=== PATIENT | male | born 1935 | race Caucasian/White ===

== ENCOUNTER 2016-12-19 09:31 | Inpatient (IN) | payer MEDICARE, MEDICAID ==
[~2016-12-19] VITALS: Ht 172.7 cm; Wt 73.7 kg
[2016-12-19] VITALS (10 sets, daily range): BP systolic 132–181; BP diastolic 85–153; PULSE 79–135; RESP 15–33; O2SAT 95–99
--- NOTE | 2016-12-19 09:37 | ED.REPORT ---
HPI-Dyspnea / Wheezing Date of Service Dec 19, 2016 ED Provider: Shelton Ovalle MD Patient is an 81 year old male who presents to the ED via EMS due to shortness of breath. He denies chest pain or palpitations. The patient reports that he has been short of breath since 12/13/16. He went to earlier today where he was found to be in atrial fibrillation with RVR and hypertensive. Patient states that he is currently asymptomatic. He is not currently taking any anticoagulants. The patient recently traveled to [place]. Nursing Notes Stated Complaint: SHORTNESS OF BREATH Nursing Notes Reviewed: Yes Allergies: Coded Allergies: No Known Allergies (Unverified , 12/19/16) General Time Seen by MD: 09:36 Chief Complaint Shortness of breath Hx Obtained From: Patient Sudden in Onset?: No Onset Occurred: 1 week ago (2 weeks) Symptom Duration: Since onset Severity: Current: No pain currently Associated with: Denies: Chest pain Recent Healthcare: No recent hospitalization, Recent doctor visit Similar Sx Previous: Yes Past Medical History Past Medical History none reported Smoking History Never Smoker Social History Alcohol Use: Denies alcohol use Drug Use: Denies drug use Other Social History: Good social support Ambulatory Status Independent Review of Systems Constitutional: Denies: Chills Respiratory: Reports: Shortness of breath, Denies: Dyspnea on exertion, Non-productive cough Cardiovascular: Denies: Chest pain, Palpitations Complete sys rev & neg: except as marked. Physical Exam Initial Vital Signs Vital Signs (First) Date Time Temp Pulse Resp B/P Pulse Ox O2 Delivery O2 Flow Rate FiO2 12/19/16 09:38 35.9 135 24 181/153 98 Nasal Cannula 2 Initial VS: Reviewed General/Constitutional: Awake, Alert Appearance / Presentation: Positive: Frail Neck: Atraumatic, Supple, Full range of motion Respiratory / Chest: Atraumatic, Breath sounds NL, Breath sounds = bilat, No respiratory distress Cardiovascular: No murmurs Heart Rate / Rhythm: Positive: Irreg irregular rhythm, Tachycardia hypertensive Abdomen: Atraumatic, Soft, Non-tender Skin: Atraumatic, Color NL, No rash, Warm, Dry Neurologic: Oriented X3, Speech NL, No motor deficits, No sensory deficits Head / Eyes: Atraumatic, Normocephalic, PERRL, EOMI Psychiatric: Affect NL, Mood NL Interpretation & Diagnostics Lab Results Interpretation Result Diagram: 12/19/16 0940 12/19/16 0940 Test 12/19/16 09:40 White Blood Count 8.9th/mm3 (3.8-10.1) Red Blood Count 4.91mil/mm3 (4.40-5.80) Hemoglobin 14.5g/dL (13.8-17.2) Hematocrit 42.9% (41.0-50.0) Mean Corpuscular Volume 87.4fL (81-100) Mean Corpuscular Hemoglobin 29.5pg (27.0-35.0) Mean Corpuscular Hemoglobin Concent 33.8% (32.0-37.0) Red Cell Distribution Width 13.9% (12.3-15.4) Platelet Count 184bil/L (150-400) Neutrophils (%) (Auto) 86.6% (40-74) Lymphocytes (%) (Auto) 6.9% (14-46) Monocytes (%) (Auto) 6.1% (4-12) Eosinophils (%) (Auto) 0.1% (0-5) Basophils (%) (Auto) 0.1% (0-3) Activated Partial Thromboplast Time 32.0sec (22.8-33.0) D-Dimer 1.35mg/L FEU (<0.50) Sodium Level 143mEq/L (134-144) Potassium Level 4.1mEq/L (3.5-5.2) Chloride Level 103mEq/L (97-108) Carbon Dioxide Level 21mmol/L (18-29) Blood Urea Nitrogen 43mg/dL (8-27) Creatinine 1.48mg/dL (0.76-1.27) Estimat Glomerular Filtration Rate 48mL/min (>59) Glucose Level 129mg/dL (60-99) Calcium Level 9.7mg/dL (8.5-10.1) Magnesium Level 2.2mg/dL (1.6-2.6) Total Bilirubin 0.9mg/dL (0.0-1.2) Aspartate Amino Transf (AST/SGOT) 34U/L (0-50) Alanine Aminotransferase (ALT/SGPT) 29U/L (0-44) Alkaline Phosphatase 96U/L (25-160) Troponin T 0.078ug/L (0.0-0.011) Pro-B-Type Natriuretic Peptide 40532qz/mL (0-486) Total Protein 7.3g/dL (6.4-8.4) Albumin 3.8g/dL (3.4-5.0) ECG Interpretation ECG Interpretation: rate 139 atrial fibrillation with RVR non specific ST changes Time: 09:39 Interpreted by: ED physician ECG Interpretation: atrial fibrillation without ischemic changes rate 76 Time: 10:36 Interpreted by: ED physician X-Ray Chest Interpretation Chest Xray Interpretation: IMPRESSION: Mild cardiomegaly, without acute cardiopulmonary disease. Dictated by: Herb Carr M.D. on 12/19/2016 at 10:58 Approved by: Herb Carr M.D. on 12/19/2016 at 10:59 View: Portable, 1 view Interpretation / Wet Read by: Interpret - Radiologist CT Chest Interpretation IMPRESSION: 1. Multiple pulmonary emboli within subsegmental branches in the lower lobes. 2. Enlargement of the pulmonary arteries is present suggesting pulmonary arterial hypertension. No leftward deviation of the interventricular septum to definitely suggest right heart strain this time. Elevated right heart filling pressures are noted with reflux of contrast into the IVC and hepatic veins. 3. Bilateral pleural effusions, right greater than left, with associated compressive atelectasis. Pulmonary edema is also present as well as cardiomegaly. Constellation of findings are compatible with congestive heart failure. 4. Small to moderate sized pericardial effusion. 5. Bilateral perihilar bronchial wall thickening consistent with a nonspecific bronchiolitis with associated mild narrowing of the airways. Findings discussed with Dr. Mckeon on 12/19/16 at 11:55 AM. Dictated by: Pk Solomon M.D. on 12/19/2016 at 11:49 Approved by: Pk Solomon M.D. on 12/19/2016 at 12:02 Study type: CT pulm angiogram Interpretation / Wet Read by: Interpret - Radiologist Re-Eval/Medical Decision Med Decision/Clinical Course She arrives in moderate distress with recent shortness of breath in rapid atrial fibrillation. Recent long travel. He is treated with IV Cardizem as well as nitroglycerin paste. Troponin and proBNP are significantly elevated as well as d-dimer. He has a CT was positive for bilateral pulmonary emboli. Heparin bolus and drip were initiated in the ER as well as consult with cardiology for the possibility of a catheter guided tPA of the pulmonary arteries. Patient receives an echocardiogram in the ER, and is also not a good candidate for catheter guided tPA. [facility]. Re-Evaluation/Progress #1: Time of Eval: 11:05 Patient Status: Condition improved Re-Evaluation/Progress #2: Time of Eval: 12:01 Re-Evaluation/Progress Note: Discussed results and plan for admit. THe patient understands and agrees to the plan for admit. All questions were addressed. Consultation #1: Referral / Consult Name: Cheyenne Fletcher MD Consulted With: Cardiology Call Returned at: 12:09 Furnace Mason: Will see patient, Agrees with eval, Agrees with plan Consultation #2: Referral / Consult Name: Sanjiv Estrada DO Consulted With: Hospitalist Call Returned at: 12:45 Furnace Mason: Agrees with eval, Agrees with plan, Accepts admit Counseled Regarding: Diagnosis, Lab results, Need for admission Discharge & Departure Impression: Primary Impression: Pulmonary emboli Pulmonary embolism type: other Chronicity: unspecified Acute cor pulmonale presence: without acute cor pulmonale Qualified Code: I26.99 - Other pulmonary embolism without acute cor pulmonale Additional Impressions: Shortness of breath Atrial fibrillation with RVR Non-STEMI (non-ST elevated myocardial infarction) Disposition: ADMITTED TO HOSPITAL Discharge Condition All VS Reviewed: Yes Condition: Stable Crit Care Except Billable Proc Time Spent: 75-104 minutes Services Performed: Patient management by me, Time spent at bedside, Reviewing test results, Reviewing imaging, Discussing patient care, Documentation in record, Time with fam/surrogate Critical Care Notes: See MDM Scribe Attestation Portions of this note were transcribed by Mary Kate Orona. I, Dr. Emelyn Monique personally performed the history, physical exam and medical decision-making; I reviewed and confirmed the accuracy of the information in the transcribed note. Signed by: Tam Basilio, 12/19/16 and 124Shelton Hawkins DO Dec 19, 2016 09:36 Sylvie Orona Dec 19, 2016 09:49
[2016-12-19] MEDS ORDERED: Diltiazem 5 mg/mL 5 mL Inj IVPUSH ONE (09:45)
[2016-12-19] MEDS ORDERED: Nitroglycerin 2% 1 Gm Ointment TOPICAL SCH (09:45)
[2016-12-19 09:56] LABS: BASOPHILS % (AUTO) 0.1 % (0-3); EOSINOPHILS % (AUTO) 0.1 % (0-5); MONOCYTES % (AUTO) 6.1 % (4-12); Mean Corpuscular Hemoglobin 29.5 pg (27.0-35.0); Mean Corpuscular Volume 87.4 fL (81-100); NEUTROPHILS % (AUTO) 86.6 % (40-74); Platelet Count 184 bil/L (150-400)
[2016-12-19 10:33] LABS: Magnesium 2.2 mg/dL (1.6-2.6)
[2016-12-19 10:49] LABS: TROPONIN T 0.078 ug/L (0.0-0.011)
--- NOTE | 2016-12-19 11:00 | DRSVH ---
PROCEDURE: X-RAY CHEST ONE VIEW, PORTABLE ([id number]) INDICATIONS: 81 year-old male with chest pain and shortness of breath for 4 days. TECHNIQUE: One view of the chest was acquired. COMPARISON: None. FINDINGS: Surgical changes and devices: None. Lungs and pleura: No pleural effusions or pneumothorax. Lungs are clear. Lung volumes are decrease d. Mediastinum: Mediastinal contours appear normal. There is mild cardiomegaly. There is aortic athero sclerosis. Bones and chest wall: No suspicious bony lesions. Overlying soft tissues appear unremarkable. IMPRESSION: Mild cardiomegaly, without acute cardiopulmonary disease. Dictated by: Herb Carr M.D. on 12/19/2016 at 10:58 Approved by: Herb Carr M.D. on 12/19/2016 at 10:59
[2016-12-19] MEDS ORDERED: Heparin 5,000 Unit/mL Inj IVPUSH ONE (12:00)
[2016-12-19] MEDS ORDERED: Heparin 25K Unit/500mL 0.45 NS 25,000 UNIT in IV Premix 1 EACH IV ONE (12:00)
--- NOTE | 2016-12-19 12:04 | DRSVH ---
PROCEDURE: CT ANGIO CHEST PULMONARY EMBOLISM ([id number]) INDICATIONS: dyspnea, elevated ddimer TECHNIQUE: After the administration of intravenous contrast, 2 mm thick sections acquired from the pulmonary api juarez to the posterior costophrenic angles. 3-dimensional maximum intensity projection (MIP) coronal a nd sagittal reformats were then acquired through the thorax. For radiation dose reduction, the follo wing was used: automated exposure control, adjustment of mA and/or kV according to patient size. COMPARISON: None. FINDINGS: Image quality: There is mild motion artifact. Pulmonary arteries: Mild motion artifact is present slightly limiting evaluation. There are filling defects within multiple subsegmental branches within the right and left lower lobes consistent with p ulmonary embolism. The pulmonary arteries are enlarged suggesting pulmonary hypertension. No defini te leftward deviation of the interventricular septum. Lungs and pleura: There are bilateral pleural effusions, small to moderate in size on the right and s mall on the left, with associated compressive atelectasis. There is bilateral perihilar bronchial wa ll thickening. Interlobular septal thickening is demonstrated bilaterally with ground glass opacitie s consistent with pulmonary edema. The trachea and central airways are patent. There is mild narrow ing of the peripheral airways secondary to bronchial wall thickening. Mediastinum: Heart size is enlarged with a small to moderate-sized pericardial effusion. No mediast inal or hilar adenopathy by size criteria, with scattered subcentimeter mediastinal and hilar lymph n odes which are likely reactive. Thoracic aorta is normal in caliber and enhancement. Esophagus is n ormal in caliber, with a small hiatal hernia. Bones and chest wall: No suspicious bony lesions. Ribs and thoracic spine appear intact throughout. Thyroid gland demonstrates no discrete nodules. No axillary or supraclavicular adenopathy. Abdomen: Visualized upper abdomen demonstrates reflux of contrast into the hepatic veins and inferio r vena cava are patent with elevated right heart filling pressures. There are partially visualized v arices within the upper abdomen. IMPRESSION: 1. Multiple pulmonary emboli within subsegmental branches in the lower lobes. 2. Enlargement of the pulmonary arteries is present suggesting pulmonary arterial hypertension. No leftward deviation of the interventricular septum to definitely suggest right heart strain this time. Elevated right heart filling pressures are noted with reflux of contrast into the IVC and hepatic v eins. 3. Bilateral pleural effusions, right greater than left, with associated compressive atelectasis. P ulmonary edema is also present as well as cardiomegaly. Constellation of findings are compatible wit h congestive heart failure. 4. Small to moderate sized pericardial effusion. 5. Bilateral perihilar bronchial wall thickening consistent with a nonspecific bronchiolitis with as sociated mild narrowing of the airways. Findings discussed with Dr. Mckeon on 12/19/16 at 11:55 AM. Dictated by: Pk Solomon M.D. on 12/19/2016 at 11:49 Approved by: Pk Solomon M.D. on 12/19/2016 at 12:02
[2016-12-19] MEDS ORDERED: 0.9% Sodium Chloride 1,000 ML IV SCH ×2 (13:06→14:40)
[2016-12-19] MEDS ORDERED: Ondansetron 2 mg/mL 2 mL Inj IVPUSH PRN (13:10)
[2016-12-19] MEDS ORDERED: Heparin 1,000 Unit/mL 10 mL Inj ONE (13:10)
[2016-12-19] MEDS ORDERED: Atropine 1 mg/10 mL (Code) Syringe IVPUSH PRN (13:10)
[2016-12-19] MEDS ORDERED: Heparin 1,000 Units/500 mL NS Premix IV ONE (13:10)
[2016-12-19] MEDS ORDERED: Alum-Mag Hydrox-Simeth 30 mL Suspension PO PRN (13:10)
--- NOTE | 2016-12-19 13:20 | PCM.HPMED ---
Subjective Date of Service Dec 19, 2016 Primary Provider: Admitting Physician: Charlie Sales MD Primary Care Physician: Nopcp Attending Physician: Charlie Sales MD Chief Complaint: Shortness of breath History of Present Illness: 81-year-old male only reported history of hypertension treated with lisinopril who presented to the emergency department via ambulance from due to 4 days of painless shortness of breath on exertion. Patient states that over the last week he has been in [place] in 5 days ago he was in a plane traveling. Shortness of breath was noticed and the next day or 2 when he was operating his sailboat. Shortness of breath it has been limiting his insertion but at no time as he had any chest pain, diaphoresis, numbness or tingling in the left arm , nausea, vomiting, abdominal pain, diplopia, dizziness, or pleuritic pain. Patient denies pain on ambulation as well. He lives in [place] which is a [address] which he does on a regular basis. CT-A in the ED revealed multiple pulmonary emboli within the subsegmental branches of the lower lobes. There is also increased pulmonary artery pressure as well as increased right heart filling pressure. Echo was performed and Dr. Meeks reviewed the echo in the emergency department to assess the need for EKOS. After reviewed Dr. Meeks felt the patient did not meet criteria. Patient's lab work was mostly benign except for left shift with a normal white count. Patient did have a BNP of 12,677, listed in the setting of new acute kidney injury with creatinine of 1.48 (admittedly we do not know his baseline) and a small bump in his troponin of 0.078. Otherwise labs were benign. Review of Systems: Pertinent positives and negatives per history of present illness; all other systems reviewed and are negative. Allergies Coded Allergies: No Known Allergies (Unverified , 12/19/16) Home Medications Lisinopril 5 mg by mouth daily PMH Hypertension Surgical History None Family History Mother of unknown cancer in her mid-60s No family history of blood clots Social History Hx Alcohol Use: No Hx Substance Use: No Hx Tobacco Use: No Smoking Status: Never Smoker Living Arrangement: with Family Exam Vital Signs Vital Sign - Last Date Time Temp Pulse Resp B/P Pulse Ox O2 Delivery O2 Flow Rate FiO2 12/19/16 12:23 36.1 107 15 174/140 95 Nasal Cannula 2 Exam Gen.: Patient awake alert in no acute distress HEENT: PERRLA, membranes pink, EOMI, nares patent, no JVD, no carotid bruit Lymph: No lymphadenopathy Cardio: A. fib Respiratory: CTA bilaterally in the anterior and lateral montanez(performed during echo) Abdomen: Positive bowel sounds; nontender, nondistended, soft Extremities: Edema noted extremities bilaterally, pedal pulses is difficult to palpate, radial pulses intact; strength is 4/5 Psych: Appropriate mood and affect Neuro: CN II through XII intact, grossly intact throughout Skin: Numerous SK, no additional rashes Lab and Diagnostics Result Diagram: 12/19/16 0940 12/19/16 0940 X-Rays, CTs and MRIs CT angiography of the chest 1. Multiple pulmonary emboli within subsegmental branches in the lower lobes. 2. Enlargement of the pulmonary arteries is present suggesting pulmonary arterial hypertension. No leftward deviation of the interventricular septum to definitely suggest right heart strain this time. Elevated right heart filling pressures are noted with reflux of contrast into the IVC and hepatic veins. 3. Bilateral pleural effusions, right greater than left, with associated compressive atelectasis. Pulmonary edema is also present as well as cardiomegaly. Constellation of findings are compatible with congestive heart failure. 4. Small to moderate sized pericardial effusion. 5. Bilateral perihilar bronchial wall thickening consistent with a nonspecific bronchiolitis with associated mild narrowing of the airways. Findings discussed with Dr. Mckeon on 12/19/16 at 11:55 AM. Dictated by: Pk Solomon M.D. on 12/19/2016 at 11:49 12-lead ECG #1: rate 139 atrial fibrillation with RVR non specific ST changes #2 atrial fibrillation without ischemic changes: rate 76 Cardiac Echo Impressions Read pending Assessment & Plan 81-year-old male with a history of hypertension presents to the ED for shortness of breath without chest pain and confirm pulmonary embolism on CT the chest with recent history of prolonged immobility on planes and in a car. Patient has symptoms of shortness of breath with exertion and increased edema in the lower extremities. No orthopnea or PND. Acute Pulmonary embolism; present on admission; ongoing -Patient presents with shortness of breath and confirm PE by CTA; provoked from recent extended immobility during travel -Patient assessed with echo for EKOS but does not meet criteria. -Patient placed on heparin protocol for PE; will add H2 elsi while active -Ultrasound of the lower extremities ordered as well as Doppler as pulses are difficult to palpate Possible CHF; present on admission; ongoing. -Patient has not seen a doctor in some time and is only reported history of hypertension controlled with lisinopril 5 mg -Patient has new exertional dyspnea and edema of the lower extremities -Echo for assessment-awaiting read -If ECHO were positive, start carvedilol prior to discharge Acute kidney injury; present on admission; ongoing -Mucous membranes are pink but dry suggesting prerenal -IV fluid -Recheck BMP tomorrow Severe asymptomatic hypertension; present on admission; ongoing excellent -Patient presented with a blood pressure approximately 180/125 with no headache or other complaints -Patient given diltiazem 20 and amlodipine 5 in the ED -Will monitor for resolution -Labetalol 20 IV when necessary -Continue home meds and we will likely add carvedilol pending echo Elevated troponin; present on admission; ongoing -Likely due to acute kidney injury as a troponin is only 0.078 -Will trend Hyperglycemia; present admission; ongoing -Unknown patient has been fasting -Check an A1c -Low correctional insulin Disposition: Patient being admitted to inpatient expected length of stay greater than 2 minutes due to severity presentation, duration of treatment, and risk of adverse events Pain Evaluation: Adequate Pain Control GI Prophylaxis: H2 elsi Resuscitation Status: CPR: Attempt Resuscitation Attending Statement The patient was seen and examined together with Dr. Estrada on 12/19/2016 and I agree with the history, exam and plan as outlined in the note above. . Sanjiv Estrada DO Dec 19, 2016 13:20 Krunal Marie MD Dec 19, 2016 20:40
[2016-12-19] MEDS ORDERED: Glucose 40% Oral Gel 15 Gm Tube PO PRN (14:40)
[2016-12-19] MEDS ORDERED: 0.9% Sodium Chloride 1,000 ML IV ONE (14:40)
[2016-12-19] MEDS ORDERED: Labetalol 5 mg/mL 4 mL Inj IVPUSH ONE (14:40)
--- NOTE | 2016-12-19 15:06 | DRSVH ---
[facility] [address] [place] [address] Echocardiogram Report Name: ODILIA BERNAL WStudy Date: 12/19/2016 Height: 68 in Hospital Exam Location: [facility] Weight: 155 lb Gender: Male BSA: 1.8 m2 : 1935 Age: 81 yrs BP: 176/129 mmHg Reason For Study: Pulmonary- Embolism Ordering Physician: Performed By: Sofia De Leon Interpretation Summary Left ventricular systolic function is severely reduced with the left ventricular ejection fraction visually estimated to be 25-35% with considerable [id number] variability with moderate to severe global hypokinesis of the left ventricle but no obvious focal wall motion abnormalities. There is mild concentric left ventricular hypertrophy. Diastolic function could not be accurately assessed due to atrial fibrillation. The right ventricle is normal size but right ventricular systolic function is moderately reduced. There is severe pulmonary hypertension with the right ventricular systolic pressure estimated at 66 mmHg assuming a right atrial pressure of 15 mm Hg. Both atria are severely dilated. There is moderate mitral regurgitation, mild aortic regurgitation, and mild tricuspid regurgitation. The ascending aorta is mild-moderately enlarged. There is a small pericardial effusion that is circumferential but is localized predominantly adjacent to the posterolateral wall without echocardiographic or Doppler indications for cardiac tamponade. The patient was in atrial fibrillation with heart rates between 87-119 bpm during the exam. Procedure: A two-dimensional transthoracic echocardiogram with color flow and Doppler was performed. The study quality was technically good. There is no prior echocardiogram noted for this patient. The patient was in atrial fibrillation with heart rates between 87-119 bpm during the exam. Left Ventricle: The left ventricle is normal in size. There is mild concentric left ventricular hypertrophy. There is no thrombus. Left ventricular systolic function is severely reduced. Left ventricular ejection fraction is estimated to be 25-35% with considerable [id number] variability. There is moderate to severe global hypokinesis of the left ventricle. There are no focal wall motion abnormalities. Diastolic function could not be accurately assessed due to atrial fibrillation. Right Ventricle: The right ventricle is normal size. Right ventricular systolic function is moderately reduced. Atria: Both atria are severely dilated. There is no Doppler evidence for an interatrial shunt. Mitral Valve: The mitral valve leaflets are slightly calcified. The mitral valve leaflets appear thickened, but open well. There is moderate mitral regurgitation. Aortic Valve: The aortic valve is trileaflet. The aortic valve is slightly calcified. The aortic valve opens well. There is no aortic valve stenosis. There is mild aortic regurgitation. Tricuspid Valve: The tricuspid valve leaflets are thin and pliable. There is mild tricuspid regurgitation. There is severe pulmonary hypertension. The right ventricular systolic pressure is estimated at 66 mmHg assuming a right atrial pressure of 15 mm Hg. Pulmonic Valve: The pulmonic valve leaflets are thin and pliable; valve motion is normal. There is a trace or physiologic amount of pulmonic regurgitation. Great Vessels: The aortic root is normal size. The ascending aorta is mild- moderately enlarged. The IVC is dilated (diameter is greater than 2.1 cm) and it collapses less than 50% with a sniff. This suggests a high right atrial pressure of 15 mm Hg. Pericardium/ Pleura There is a small pericardial effusion that is circumferential. This is localized predominantly adjacent to the posterolateral wall. There are no echocardiographic or Doppler indications for cardiac tamponade. MMode/2D Measurements & Calculations LVIDd: 5.6 cm RA long axis: 5.7 cm LVOT diam LVIDs: 5.0 cm LA A2 area: 29.6 cm FS: 9.9 % LA A4 area: 32.6 cm RA area: 25.6 cm AoV Opening EPSS: 0.85 cm LA length (vol): 7.4 cm RA vol: 97.5 ml IVSd: 1.2 cm LA vol: 110.1 ml RA : 53.2 ml/m2 Ao root diam LVPWd: 0.87 cm LA vol index: 60.0 ml/m Aortic Jxn IVC diam: 2.9 cm asc Aorta Diam EDV(MOD-sp2) LV guevara. diameter/BSA LV sys. diameter/BSA RVD1 (basal) (cm/m^2): 3.0 (cm/m^2): 2.7 : 3.7 cm ESV(MOD-sp2) EF(MOD-sp2) TAPSE: 1.5 cm Doppler Measurements & Calculations Ao V2 max: 131.8 cm/sec MV E max mike Med Peak E' Mike TR max mike Ao max P.0 mmHg : 92.4 cm/sec : 356.2 cm/sec Ao mean P.8 mmHg MV P1/2t E/E' med: 20.4 TR max PG LVOT Max Mike : 38.4 msec Lat Peak E' Mike : 51.1 mmHg : 58.6 cm/sec PA V2 max E/E' lat: 13.9 : 49.2 cm/sec GENA(I,D): 1.4 cm E/e' average PA mean PG sev ratio: 0.38 : 0.55 mmHg AI P1/2t: 559.9 msec PA Accel Time AI dec slope : 0.09 sec : 230.1 cm/s2c MV P1/2t max mike Ao V2 mean LV V1 max PG PA V2 mean : 92.5 cm/sec : 34.4 cm/sec MVA(P1/2t): 5.7 cm2 Ao V2 VTI LV V1 VTI: 7.9 cm GENA(V,D): 1.7 cm2 GENA indexed to BSA (cm^2/m^2): 0.79 Reading Physician:03:05 PM
[2016-12-19] MEDS ORDERED: HYDR12.5 PO (15:32)
[2016-12-19] MEDS ORDERED: NPR500T PO (15:33)
[2016-12-19] MEDS ORDERED: VARD10TA18 PO (15:33)
[2016-12-19] MEDS ORDERED: LISI-567 PO (15:34)
[2016-12-19] MEDS ORDERED: KEN1C TOPICAL (15:34)
[2016-12-19 15:51] LABS: APPEARANCE,URINE CLEAR (CLEAR,HAZY); COLOR,URINE YELLOW (YELLOW); PH,URINE 5.5 (5.0-8.0)
[2016-12-19 15:52] LABS: OCCULT BLOOD,URINE SMALL (NEGATIVE)
[2016-12-19] MEDS: Sodium Chloride LOK Flush 10 mL Syringe IVFLUSH SCH (15:59)
--- NOTE | 2016-12-19 16:30 | DRSVH ---
PROCEDURE: US VENOUS LEG DUPLEX BILATERAL INDICATIONS: dvt? TECHNIQUE: Real-time imaging, as well as color and pulse Doppler interrogation, were performed of the deep veins of both legs from the inguinal ligament to the popliteal fossa. COMPARISON: None. FINDINGS: The deep veins are normally compressible, and free of intraluminal thrombus. Color and pu lse Doppler demonstrate normal phasic intravascular flow. There is normal augmentation response to d istal compression maneuver. IMPRESSION: No deep venous thrombosis identified within either the left or right lower extremities. Dictated by: Delmar Alfonso [facility] Interpreted: Phuc Collado MD on 12/19/2016 at 16:29 Transcribed by: ROXANA on 12/19/2016 at 16:29 Approved by: Phuc Collado M.D. on 12/19/2016 at 16:52
[2016-12-19 17:17] LABS: Creatine Kinase 104 U/L (21-232)
[2016-12-19 17:18] LABS: TROPONIN T 0.063 ug/L (0.0-0.011)
[2016-12-19] MEDS ORDERED: Insulin LISPRO 300 Unit/3 mL Inj SUBQ SCH (17:30)
--- NOTE | 2016-12-19 18:28 | NUR ---
Arrived, Multidisciplinary Communication About 1440 - He arrived to [facility] 2029 and was settled into his room. He was asking about being able to eat something. Told him that this nurse would need to check with the MD first. 1510 - Paged the [facility] team hospitalist as that was the hospitalist assigned to her in the medical records. He did not return the page. 1530 - Paged again and he called back saying that he was not assigned to the patient. 1535 - Admissions was called and they corrected the medical record and said that the [facility] was assigned to her today. Paged Dr. Candy Estrada who called back. He said he could be have heart healthy diet. He also clarified some medications orders by saying to give 325 mg of Aspirin PO now and to run his Normal Saline at 75 mls/hour and not 80 mls/hour (duplicate order). 1555 - Noted he had Labetalol ordered. Both [facility] showed they were out of the medication. Spoke to Pharmacist Krunal who said he would get some sent up. It was sent up later and given. 171 - Spoke to Dr. Marie and asked him if he needed to have his blood glucose checked and insulin given as he was claiming he was not a diabetic. Dr. Marie discontinued his insulin and blood glucose checks. 181 - Paged Dr. Estrada and told him that the patient had been complaining of anxiety and "possible panic attacks." He had requested something for the anxiety. Dr. Estrada asked for his blood pressure to be taken again post Labetalol, to page him with the results, and then he would re-evaluate. His blood pressure was 149/114 and pulse was 115. Dr. Estrada said he would try and control his blood pressure with Labetalol tonight and re-evaluate in the morning. Care continues.
[2016-12-19 20:00] LABS: TROPONIN T 0.077 ug/L (0.0-0.011)
[2016-12-20] VITALS (8 sets, daily range): BP systolic 140–167; BP diastolic 95–122; PULSE 80–118; RESP 20–24; O2SAT 97–100
[2016-12-20] MEDS: Sodium Chloride LOK Flush 10 mL Syringe IVFLUSH SCH ×3 (00:59→17:29)
--- NOTE | 2016-12-20 06:27 | NUR ---
Insomnia Patient was having a difficult time sleeping. Patient stated having not slept in the past five days. MD contacted and melatonin ordered. Patient would doze off lightly then wake up again. Patient IV went bad and new one was placed. MD aware of patient sleeping difficulty.
[2016-12-20 07:00] LABS: BASOPHILS % (AUTO) 0.1 % (0-3); EOSINOPHILS % (AUTO) 0.9 % (0-5); MONOCYTES % (AUTO) 6.4 % (4-12); Mean Corpuscular Hemoglobin 29.6 pg (27.0-35.0); Mean Corpuscular Volume 90.1 fL (81-100); NEUTROPHILS % (AUTO) 83.9 % (40-74); Platelet Count 146 bil/L (150-400)
--- NOTE | 2016-12-20 07:38 | NUR ---
IVT called for restart, current IV found non-patent. Heparin gtt on hold until IV access.
--- NOTE | 2016-12-20 09:26 | NUR ---
Social Work: Initial Assessment D: Per EMR review, pt is an 81 year old male admitted for Bilateral PE. Pt is Medicare with no supplement, LTC insurance or VA benefits. PCP is Charla Bowers MD, in [place]. NOK is Adis Perrin Jr., Son, and dtr, Tiffanie Landrum, . Pt declined AD information. Readmit score is low, 2/8. FLAT BREAKDOWN PROCESSOR met with pt and family at bedside. Sw role explained and contact info provided. See initial assessment. Pt lives in [place] and travels back and forth to [place]. Pt is I with ADLs at baseline, drives and has never had HH versus SNF. Pt intends to drive back to [place] at discharge; FLAT BREAKDOWN PROCESSOR and family expressed to patient that he may need to have family assist him at time of discharge pending his clinical course during hospitalization. Pt expressed frustration about care overnight and states he was not happy being woken up repeatedly for vital checks and repeated care from nursing staff. FLAT BREAKDOWN PROCESSOR provided pt with patient advocate information and phone number to the patient complaint hotline. A: Pt who is I at baseline. P: Anticipate pt to discharge home via POV; FLAT BREAKDOWN PROCESSOR to continue to follow and assess for needs. MCKAYLA Weiss Addendum: 12/20/16 at 1014 by ROSY DUMONT SS Amended: Links added.
[2016-12-20] MEDS: Heparin 5,000 Unit/mL Inj IVPUSH PRN ×2 (10:25→20:24)
--- NOTE | 2016-12-20 11:17 | PCM.PNMED ---
Subjective Date of Service Dec 20, 2016 Subjective 81-year-old male only reported history of hypertension treated with lisinopril who presented to the emergency department via ambulance from due to 4 days of painless shortness of breath on exertion. This morning, he reports that he has more trouble breathing when he gets anxious or upset. He does not have chest pain. He has not noticed swelling in his legs. Exam Vital Signs Vital Sign - Last Date Time Temp Pulse Resp B/P Pulse Ox O2 Delivery O2 Flow Rate FiO2 12/20/16 08:30 36.7 110 20 167/118 97 Nasal Cannula 2.00 Intake and Output 12/19/16 12/19/16 12/20/16 Cumulative From/Thru 15:00 23:00 07:00 12/19/16 09:38 - 12/20/16 06:43 Intake Total 1594 ml 1130 ml 2724 ml Output Total 200 ml 350 ml 550 ml Balance 1394 ml 780 ml 2174 ml Intake Oral 520 ml 400 ml 920 ml IV Total 1074 ml 730 ml 1804 ml Output Urine Total 200 ml 350 ml 550 ml # Voids 2 2 # Bowel Movements 0 0 Exam Gen.: Patient awake alert in no acute distress HEENT: PERRLA, membranes pink, EOMI, nares patent, no JVD, no carotid bruit Lymph: No lymphadenopathy Cardio: A. fib Respiratory: Clear to auscultation bilaterally in the anterior and lateral montanez Abdomen: Positive bowel sounds; nontender, nondistended, soft Extremities: Mild pitting edema noted extremities bilaterally, pedal pulses is difficult to palpate, radial pulses intact; strength is 4/5 Psych: Appropriate mood and affect Neuro: CN II through XII intact, grossly intact throughout Skin: Numerous SK, no additional rashes IVs and Medications Medications Reviewed: Medications were reviewed in detail Lab and Diagnostics Result Diagram: 12/20/168 12/20/16 0258 X-Rays, CTs and MRIs CT angiography of the chest 1. Multiple pulmonary emboli within subsegmental branches in the lower lobes. 2. Enlargement of the pulmonary arteries is present suggesting pulmonary arterial hypertension. No leftward deviation of the interventricular septum to definitely suggest right heart strain this time. Elevated right heart filling pressures are noted with reflux of contrast into the IVC and hepatic veins. 3. Bilateral pleural effusions, right greater than left, with associated compressive atelectasis. Pulmonary edema is also present as well as cardiomegaly. Constellation of findings are compatible with congestive heart failure. 4. Small to moderate sized pericardial effusion. 5. Bilateral perihilar bronchial wall thickening consistent with a nonspecific bronchiolitis with associated mild narrowing of the airways. Findings discussed with Dr. Mckeon on 12/19/16 at 11:55 AM. Dictated by: Pk Solomon M.D. on 12/19/2016 at 11:49 PROCEDURE: US VENOUS LEG DUPLEX BILATERAL IMPRESSION: No deep venous thrombosis identified within either the left or right lower extremities. Approved by: Phuc Collado M.D. on 12/19/2016 at 16:52 12-lead ECG #1: rate 139 atrial fibrillation with RVR non specific ST changes #2 atrial fibrillation without ischemic changes: rate 76 Cardiac Echo Impressions Echocardiogram Report Interpretation Summary Left ventricular systolic function is severely reduced with the left ventricular ejection fraction visually estimated to be 25-35% with considerable [id number] variability with moderate to severe global hypokinesis of the left ventricle but no obvious focal wall motion abnormalities. There is mild concentric left ventricular hypertrophy. Diastolic function could not be accurately assessed due to atrial fibrillation. The right ventricle is normal size but right ventricular systolic function is moderately reduced. There is severe pulmonary hypertension with the right ventricular systolic pressure estimated at 66 mmHg assuming a right atrial pressure of 15 mm Hg. Both atria are severely dilated. There is moderate mitral regurgitation, mild aortic regurgitation, and mild tricuspid regurgitation. The ascending aorta is mild-moderately enlarged. There is a small pericardial effusion that is circumferential but is localized predominantly adjacent to the posterolateral wall without echocardiographic or Doppler indications for cardiac tamponade. The patient was in atrial fibrillation with heart rates between 87-119 bpm during the exam. Reading Physician:03:05 PM Assessment & Plan 81-year-old male with a history of hypertension presents to the ED for shortness of breath without chest pain and confirm pulmonary embolism on CT the chest with recent history of prolonged immobility on planes and in a car. Patient has symptoms of shortness of breath with exertion and increased edema in the lower extremities. No orthopnea or PND. Acute Pulmonary embolism; present on admission; ongoing -Patient presents with shortness of breath and confirm PE by CTA; provoked from recent extended immobility during travel. No DVT on lower extremity ultrasound -Patient assessed with echo for EKOS but does not meet criteria. -Patient placed on heparin protocol for PE; will add H2 elsi while active -Will switch to Eliquis or Pradaxa based on patient's insurance coverage Chronic systolic CHF; present on admission; ongoing. -Patient has not seen a doctor in some time and is only reported history of hypertension controlled with lisinopril 5 mg -Patient has new exertional dyspnea and edema of the lower extremities -Echocardiogram as above -Carvedilol 6.25 mg BID and resumed lisinopril 20 mg once daily Atrial fibrillation, acute, present on admission, active. - Carvedilol as above - Heparin as above until switched to NOAC Acute kidney injury; present on admission; improving -Mucous membranes are pink but dry suggesting prerenal -IV fluid discontinued -Recheck BMP tomorrow Severe asymptomatic hypertension; present on admission; ongoing -Patient presented with a blood pressure approximately 180/125 with no headache or other complaints -Patient given diltiazem 20 and amlodipine 5 in the ED -Will monitor for resolution -Labetalol 20 IV when necessary -Carvedilol and lisinopril as above Elevated troponin; present on admission; ongoing -Likely due to acute kidney injury as a troponin is only 0.078 Hyperglycemia; present admission; ongoing -Unknown patient has been fasting -HgbA1c 5.6% -Low correctional insulin Pain Evaluation: Adequate Pain Control GI Prophylaxis: H2 elsi Resuscitation Status: CPR: Attempt Resuscitation Attending Statement The patient was seen and examined together with Dr. Anguiano on 12/20/2016 and I agree with the history, exam and plan as outlined in the note above. . Oly Anguiano DO Dec 20, 2016 11:17 Krunal Marie MD Dec 21, 2016 17:35
[2016-12-20] MEDS ORDERED: APIX5TAB PO (11:41)
--- NOTE | 2016-12-20 17:50 | NUR ---
Up on bedside most of day. Intermittent increased anxiety accompanied with increased SOB. Patient shares much history of feeling anxious, not sleeping well or at all after midnight most nights, unable to "turn his mind off", periods of panic attacks at home. He indicates that he does not take medication but has shared these concerns with his primary physician. BP elevated, improved following medication administration. PTT pending, lab notified after prolonged wait; Heparin remains stopped per protocol/high PTT results, pending current PTT results. Eating well, denies pain, but c/o feeling intermittently short of breath, usually associated with any activity including position changes. Supportive family at bedside.
[2016-12-20] MEDS ORDERED: hydrOXYzine Pamoate 25 mg Capsule PO SCH (21:00)
[2016-12-21] VITALS (9 sets, daily range): BP systolic 142–196; BP diastolic 90–124; PULSE 78–125; RESP 22–32; O2SAT 92–100
[2016-12-21] MEDS: Sodium Chloride LOK Flush 10 mL Syringe IVFLUSH SCH ×3 (00:30→18:10)
[2016-12-21 02:56] LABS: BASOPHILS % (AUTO) 0.3 % (0-3); EOSINOPHILS % (AUTO) 1.4 % (0-5); MONOCYTES % (AUTO) 5.4 % (4-12); Mean Corpuscular Hemoglobin 29.7 pg (27.0-35.0); Mean Corpuscular Volume 89.7 fL (81-100); NEUTROPHILS % (AUTO) 79.4 % (40-74); Platelet Count 141 bil/L (150-400)
[2016-12-21] MEDS ORDERED: LORazepam 0.5 mg Tablet PO ONE (03:20)
--- NOTE | 2016-12-21 05:21 | NUR ---
Anxiety/Heparin Drip Pt has had anxiety through most of the shift with no relief from the HS Vistaril or the one time dose of Ativan. Pt's vital signs were: BP 166/113, HR110, RR30, LxR1030% while pt c/o SOB. was notified. Pt's PTT Heparin at 0330 was 181.6 and the heparin drip was stopped. Pt's PTT at 0500 was 185.8 and pt's heparin drip continues to be on standy. Next PTT draw is scheduled for 0600.
--- NOTE | 2016-12-21 06:38 | NUR ---
Heparin Drip Lab called with PTT of 53.8 at 0630. Pt's heparin drip was started at approximately 0635 at the same rate of 18 units/kg/hr with no bolus given. Pt's next PTT Heparin lab draw has been scheduled for 1230.
--- NOTE | 2016-12-21 11:00 | NUR ---
[facility] SIGNED
--- NOTE | 2016-12-21 11:28 | NUR ---
Social Work: Continued Discharge Planning D: Pt discussed in am rounds. Pt is not yet medically stable for discharge at this time. Pt is anticipated to be ready for d/c in 1-2 days. PT was able to work with pt today. They are recommending a FWW for the patient at time of discharge. COMPUTER CLERK met with pt and family at bedside to discuss recommendation for a walker. Pt and family agree that it would be beneficial for the patient to have. COMPUTER CLERK discuss Private Pay options and Medicare DME coverage. Pt and family would like to preserve the pt's DME benefit and obtain a walker on their own. COMPUTER CLERK provided them with a list of DME suppliers. They will work on this before pt's discharge and will contact COMPUTER CLERK if they have issues obtaining this DME. A: Pt who is I at baseline. P: Anticipate pt to discharge home via POV with family obtaining FWW for patient. COMPUTER CLERK to continue to follow. MCKAYLA Weiss
[2016-12-21] MEDS: Senna-Docusate 8.6-50 mg Tablet PO PRN (11:38)
[2016-12-21] MEDS: Polyethylene Glycol (PEG) 17 Gm Powder PO PRN (11:38)
[2016-12-21] MEDS ORDERED: Furosemide 10 mg/mL 2 mL Inj IVPUSH ONE (11:40)
--- NOTE | 2016-12-21 11:52 | NUR ---
Evaluation completed. Please go to "Notes" then click on "Assessments and Notes" (bottom left corner of screen). Then select appropriate discipline tab on top of screen.
--- NOTE | 2016-12-21 16:00 | NUR ---
Eliquis / Atrial Fib / CHF teaching Orders received to bridge from Heparin gtt to Eliquis this evening. Detailed handouts and discussions with pt & family this afternoon. Ongoing need for reinforcement and review with pt; daughters expressing concerns about pt's ability to manage his medications safely. Will follow closely.
--- NOTE | 2016-12-21 16:42 | PCM.PNMED ---
Subjective Date of Service Dec 21, 2016 Subjective 81-year-old male only reported history of hypertension treated with lisinopril who presented to the emergency department via ambulance from due to 4 days of painless shortness of breath on exertion. He was confused last night and thought that he was on a boat. He continues to have episodes of using his abdominal muscles to breathe. He is not coughing. He does not have chest pain. Exam Vital Signs Vital Sign - Last Date Time Temp Pulse Resp B/P Pulse Ox O2 Delivery O2 Flow Rate FiO2 12/21/16 12:16 37.2 110 32 143/98 98 Room Air 12/21/16 03:00 2.00 Intake and Output 12/20/16 12/20/16 12/21/16 Cumulative From/Thru 15:00 23:00 07:00 12/19/16 09:38 - 12/21/16 06:35 Intake Total 920 ml 635 ml 4279 ml Output Total 100 ml 650 ml Balance 820 ml 635 ml 3629 ml Intake Oral 500 ml 550 ml 1970 ml IV Total 420 ml 85 ml 2309 ml Output Urine Total 100 ml 650 ml # Voids 3 5 # Bowel Movements 0 Exam Gen.: Patient awake alert in no acute distress HEENT: PERRLA, membranes pink, EOMI, nares patent, no JVD, no carotid bruit Lymph: No lymphadenopathy Cardio: Tachycardic with irregular rhythm with no murmurs, rubs, or gallops Respiratory: Clear to auscultation bilaterally in the anterior and lateral montanez. Coarse breath sounds when patient breathing through nostrils. Abdomen: Positive bowel sounds; nontender, nondistended, soft Extremities: Mild pitting edema noted extremities bilaterally, pedal pulses is difficult to palpate, radial pulses intact; strength is 4/5 Psych: Appropriate mood and affect Neuro: CN II through XII intact, grossly intact throughout Skin: Numerous SK, no additional rashes IVs and Medications Medications Reviewed: Medications were reviewed in detail Lab and Diagnostics Result Diagram: 12/21/164 12/21/16 0234 X-Rays, CTs and MRIs CT angiography of the chest 1. Multiple pulmonary emboli within subsegmental branches in the lower lobes. 2. Enlargement of the pulmonary arteries is present suggesting pulmonary arterial hypertension. No leftward deviation of the interventricular septum to definitely suggest right heart strain this time. Elevated right heart filling pressures are noted with reflux of contrast into the IVC and hepatic veins. 3. Bilateral pleural effusions, right greater than left, with associated compressive atelectasis. Pulmonary edema is also present as well as cardiomegaly. Constellation of findings are compatible with congestive heart failure. 4. Small to moderate sized pericardial effusion. 5. Bilateral perihilar bronchial wall thickening consistent with a nonspecific bronchiolitis with associated mild narrowing of the airways. Findings discussed with Dr. Mckeon on 12/19/16 at 11:55 AM. Dictated by: Pk Solomon M.D. on 12/19/2016 at 11:49 PROCEDURE: US VENOUS LEG DUPLEX BILATERAL IMPRESSION: No deep venous thrombosis identified within either the left or right lower extremities. Approved by: Phuc Collado M.D. on 12/19/2016 at 16:52 12-lead ECG #1: rate 139 atrial fibrillation with RVR non specific ST changes #2 atrial fibrillation without ischemic changes: rate 76 Cardiac Echo Impressions Echocardiogram Report Interpretation Summary Left ventricular systolic function is severely reduced with the left ventricular ejection fraction visually estimated to be 25-35% with considerable [id number]-yb-[id number] variability with moderate to severe global hypokinesis of the left ventricle but no obvious focal wall motion abnormalities. There is mild concentric left ventricular hypertrophy. Diastolic function could not be accurately assessed due to atrial fibrillation. The right ventricle is normal size but right ventricular systolic function is moderately reduced. There is severe pulmonary hypertension with the right ventricular systolic pressure estimated at 66 mmHg assuming a right atrial pressure of 15 mm Hg. Both atria are severely dilated. There is moderate mitral regurgitation, mild aortic regurgitation, and mild tricuspid regurgitation. The ascending aorta is mild-moderately enlarged. There is a small pericardial effusion that is circumferential but is localized predominantly adjacent to the posterolateral wall without echocardiographic or Doppler indications for cardiac tamponade. The patient was in atrial fibrillation with heart rates between 87-119 bpm during the exam. Reading Physician:03:05 PM Assessment & Plan 81-year-old male with a history of hypertension presents to the ED for shortness of breath without chest pain and confirm pulmonary embolism on CT the chest with recent history of prolonged immobility on planes and in a car. Patient has symptoms of shortness of breath with exertion and increased edema in the lower extremities. No orthopnea or PND. Acute Pulmonary embolism; present on admission; ongoing -Patient presents with shortness of breath and confirm PE by CTA; provoked from recent extended immobility during travel. No DVT on lower extremity ultrasound -Patient assessed with echo for EKOS but does not meet criteria. -Patient placed on heparin protocol for PE and stop at the same time the first dose of apixaban is started -Continue H2 elsi -Switch to apixaban 10 mg BID for 7 days then 5 mg BID thereafter starting today 12/21/16 Chronic systolic CHF; present on admission; ongoing. -Patient has not seen a doctor in some time and is only reported history of hypertension controlled with lisinopril 5 mg -Patient has new exertional dyspnea and edema of the lower extremities -Echocardiogram as above -Carvedilol increased to 12.5 mg BID and resumed lisinopril 20 mg once daily -One dose of furosemide 20 mg once today and monitor response -Morphine as needed for shortness of breath Atrial fibrillation, acute, present on admission, active. - Carvedilol as above - Heparin as above until switched to NOAC Acute kidney injury; present on admission; improving -Mucous membranes are pink but dry suggesting prerenal -IV fluid discontinued -Recheck BMP tomorrow Severe asymptomatic hypertension; present on admission; ongoing -Patient presented with a blood pressure approximately 180/125 with no headache or other complaints -Patient given diltiazem 20 and amlodipine 5 in the ED -Will monitor for resolution -Labetalol 20 IV when necessary -Carvedilol and lisinopril as above -Add hydrochlorothiazide 12.5 mg once daily tomorrow morning if continues to be hypertensive Elevated troponin; present on admission; ongoing -Likely due to acute kidney injury in context of PE and cardiomyopathy as a troponin is only 0.078 -Cardiology consulted. Their time and recommendations are appreciated. -Recommend considering Lexiscan nuclear stress test either while in the hospital or as an outpatient if patient is not able to follow up Hyperglycemia; present admission; ongoing -Unknown patient has been fasting -HgbA1c 5.6% -Low correctional insulin Pain Evaluation: Adequate Pain Control GI Prophylaxis: H2 elsi Resuscitation Status: CPR: Attempt Resuscitation Attending Statement The patient was seen and examined together with Dr. Anguiano on 12/21/2016 and I agree with the history, exam and plan as outlined in the note above. . Oly Anguiano DO Dec 21, 2016 14:48 Krunal Marie MD Dec 21, 2016 17:37
--- NOTE | 2016-12-21 18:00 | NUR ---
Progressive mobility Improving to ambulating in roque w/ assist; up freq @ bedside. Daughters @ bedside; freq updates to pt & family.
[2016-12-21] MEDS: Heparin 25K Unit/500mL 0.45 NS 25,000 UNIT in IV Premix 1 EACH IV SCH (18:11)
[2016-12-22] VITALS (10 sets, daily range): BP systolic 126–164; BP diastolic 79–120; PULSE 83–116; RESP 20–24; O2SAT 94–99
[2016-12-22] MEDS: Sodium Chloride LOK Flush 10 mL Syringe IVFLUSH SCH ×3 (00:11→17:05)
[2016-12-22 05:05] LABS: BASOPHILS % (AUTO) 0.2 % (0-3); EOSINOPHILS % (AUTO) 1.1 % (0-5); MONOCYTES % (AUTO) 6.6 % (4-12); Mean Corpuscular Hemoglobin 29.2 pg (27.0-35.0); NEUTROPHILS % (AUTO) 81.7 % (40-74); Platelet Count 147 bil/L (150-400)
--- NOTE | 2016-12-22 05:20 | NUR ---
Rest Pt was able to sleep through most of the shift. Per MD communication to nurses in the interventions pt was allowed to sleep with few disturbances.
[2016-12-22] MEDS: Heparin 25K Unit/500mL 0.45 NS 25,000 UNIT in IV Premix 1 EACH IV SCH (08:36)
[2016-12-22] MEDS: Senna-Docusate 8.6-50 mg Tablet PO PRN (09:27)
[2016-12-22] MEDS: Polyethylene Glycol (PEG) 17 Gm Powder PO PRN (09:27)
--- NOTE | 2016-12-22 13:55 | PCM.PNMED ---
Subjective Date of Service Dec 22, 2016 Subjective 81-year-old male who presented with bilateral pulmonary embolisms in atrial fibrillation with newly identified systolic heart failure. Overnight the patient did well with no ongoing complaints. He has intermittently had some epigastric pain medicines to come and go. His breathing has improved and he denies additional review of symptoms. She is able to get up and move around and was walking down the hallway this morning. Physical therapy recommended that the patient is walker at all times at home. Patient was started on Eliquis today and heparin was discontinued Exam Vital Signs Vital Sign - Last Date Time Temp Pulse Resp B/P Pulse Ox O2 Delivery O2 Flow Rate FiO2 12/22/16 11:08 36.5 87 20 137/95 98 Room Air 12/21/16 03:00 2.00 Intake and Output 12/21/16 12/21/16 12/22/16 Cumulative From/Thru 15:00 23:00 07:00 12/19/16 09:38 - 12/22/16 05:21 Intake Total 812 ml 800 ml 119 ml 6010 ml Output Total 850 ml 200 ml 1700 ml Balance 812 ml -50 ml -81 ml 4310 ml Intake Oral 800 ml 100 ml 2870 ml IV Total 812 ml 19 ml 3140 ml Output Urine Total 850 ml 200 ml 1700 ml # Voids 5 # Bowel Movements 0 0 0 0 Exam Gen.: Patient awake alert in no acute distress HEENT: PERRLA, membranes pink, EOMI, nares patent, no JVD, no carotid bruit Cardio: A. fib Respiratory: Wheezing present throughout otherwise clear to auscultation Abdomen: Positive bowel sounds; nontender, nondistended, soft Extremities: Edema noted extremities bilaterally, pedal pulses is difficult to palpate, radial pulses intact; strength is 4/5 Psych: Appropriate mood and affect Neuro: CN II through XII intact, grossly intact throughout Skin: Numerous SK, no additional rashes IVs and Medications Medications Reviewed: Medications were reviewed in detail Lab and Diagnostics Result Diagram: 12/22/1643912/22/16439 X-Rays, CTs and MRIs CT angiography of the chest 1. Multiple pulmonary emboli within subsegmental branches in the lower lobes. 2. Enlargement of the pulmonary arteries is present suggesting pulmonary arterial hypertension. No leftward deviation of the interventricular septum to definitely suggest right heart strain this time. Elevated right heart filling pressures are noted with reflux of contrast into the IVC and hepatic veins. 3. Bilateral pleural effusions, right greater than left, with associated compressive atelectasis. Pulmonary edema is also present as well as cardiomegaly. Constellation of findings are compatible with congestive heart failure. 4. Small to moderate sized pericardial effusion. 5. Bilateral perihilar bronchial wall thickening consistent with a nonspecific bronchiolitis with associated mild narrowing of the airways. Findings discussed with Dr. Mckeon on 12/19/16 at 11:55 AM. Dictated by: Pk Solomon M.D. on 12/19/2016 at 11:49 PROCEDURE: US VENOUS LEG DUPLEX BILATERAL IMPRESSION: No deep venous thrombosis identified within either the left or right lower extremities. Approved by: Phuc Collado M.D. on 12/19/2016 at 16:52 12-lead ECG #1: rate 139 atrial fibrillation with RVR non specific ST changes #2 atrial fibrillation without ischemic changes: rate 76 Cardiac Echo Impressions Echocardiogram Report Interpretation Summary Left ventricular systolic function is severely reduced with the left ventricular ejection fraction visually estimated to be 25-35% with considerable rics-ke-dirg variability with moderate to severe global hypokinesis of the left ventricle but no obvious focal wall motion abnormalities. There is mild concentric left ventricular hypertrophy. Diastolic function could not be accurately assessed due to atrial fibrillation. The right ventricle is normal size but right ventricular systolic function is moderately reduced. There is severe pulmonary hypertension with the right ventricular systolic pressure estimated at 66 mmHg assuming a right atrial pressure of 15 mm Hg. Both atria are severely dilated. There is moderate mitral regurgitation, mild aortic regurgitation, and mild tricuspid regurgitation. The ascending aorta is mild-moderately enlarged. There is a small pericardial effusion that is circumferential but is localized predominantly adjacent to the posterolateral wall without echocardiographic or Doppler indications for cardiac tamponade. The patient was in atrial fibrillation with heart rates between 87-119 bpm during the exam. Reading Physician:03:05 PM Assessment & Plan 81-year-old male with a history of hypertension presents to the ED for shortness of breath without chest pain and confirm pulmonary embolism on CT the chest with recent history of prolonged immobility on planes and in a car. Patient has symptoms of shortness of breath with exertion and increased edema in the lower extremities. No orthopnea or PND. Acute Pulmonary embolism; present on admission; ongoing -Patient presents with shortness of breath and confirm PE by CTA; provoked from recent extended immobility during travel. No DVT on lower extremity ultrasound -Patient assessed with echo for EKOS but does not meet criteria. -Patient placed on heparin protocol for PE and stopped after 24 hours and at the same time the first dose of apixaban is started -Switch to apixaban 10 mg BID for 7 days then 5 mg BID thereafter starting today 12/21/16 Chronic systolic CHF; present on admission; ongoing. -Patient has not seen a doctor in some time and is only reported history of hypertension controlled with lisinopril 5 mg -Patient has new exertional dyspnea and edema of the lower extremities -Echocardiogram reveals 25% EF -Carvedilol increased to 12.5 mg BID and resumed lisinopril 20 mg once daily -Furosemide 40 mg today -Morphine as needed for shortness of breath Atrial fibrillation, acute, present on admission, active. - Carvedilol as above - Eliquis for anticoagulation Acute kidney injury; present on admission; improving -Mucous membranes are pink but dry suggesting prerenal on presentation -Creatinine increased today; try additional diuretics today for CHF/HTN; if continues to climb will stop -Recheck BMP tomorrow Severe asymptomatic hypertension; present on admission; ongoing -Patient presented with a blood pressure approximately 180/125 with no headache or other complaints -Patient given diltiazem 20 and amlodipine 5 in the ED -Will monitor for resolution -Labetalol 20 IV when necessary -Carvedilol and lisinopril as above -Start Chlorthalidone 25 once today Elevated troponin; present on admission; ongoing -Likely due to acute kidney injury in context of PE and cardiomyopathy as a troponin is only 0.078 -Cardiology consulted. Their time and recommendations are appreciated. -Recommend considering Lexiscan nuclear stress test either while in the hospital or as an outpatient if patient is not able to follow up Hyperglycemia; present admission; ongoing -Unknown patient has been fasting -HgbA1c 5.6% -Low correctional insulin Disposition: Despite discharge tomorrow to home with family. Patient should have close cardiac and PCP follow-up. Pain Evaluation: Adequate Pain Control GI Prophylaxis: H2 elsi Resuscitation Status: CPR: Attempt Resuscitation Attending Statement The patient was seen and examined together with Dr. Estrada on 12/22/2016 and I agree with the history, exam and plan as outlined in the note above. . Sanjiv Estrada DO Dec 22, 2016 13:55 Krunal Marie MD Dec 23, 2016 09:12
--- NOTE | 2016-12-22 15:45 | CONS ---
[address] [address] CONSULTATION REPORT PATIENT: ODILIA BERNAL : 1935 MR#: [id number] ADMIT: 12/19/2016 JOB ID: [id number] DATE OF SERVICE: 12/22/2016 CHIEF COMPLAINT: I was asked by the hospital team to consult on this patient given recent admission with increased shortness of breath, findings of pulmonary embolism as well as cardiomyopathy and atrial fibrillation. HISTORY OF PRESENT ILLNESS: The patient is an 81-year-old man who had a history of hypertension. He says he has been followed by a primary care provider and treated with lisinopril. He came from urgent care due to increased shortness of breath. In speaking to me, he says it has been about a month where he has really been feeling like he is slowing down and getting more short of breath. He was apparently in [place] five days previous to this and was sailing. He says he does a lot of driving to [facility] and sometimes will be in the car for about five hours. He was found to have a pulmonary emboli within the subsegmental branches of the lower lobes. He also had an echocardiogram performed that showed LV dysfunction and moderately reduced RV dysfunction. Pulmonary pressures were estimated at 66 mm hg and he also had an elevated right atrial pressure. He has a small pericardial effusion that was not hemodynamically significant. Since he has been here, he has been placed on heparin which has now been converted to Eliquis. He has been placed on a beta elsi for heart rate control, lisinopril, aspirin, and also has been getting diuresed. The patient says he has been feeling a little bit better and he has actually been able to get up to walk around, although he still appears somewhat dyspneic when I am speaking with him today. He denies chest pain, chest pressure, either during this admission or in the months preceding this. He does not recall having an irregular heartbeat, but does recall having episodes where he would suddenly feel that his breathing was very fast. He probably has orthopnea by description. He denies paroxysmal nocturnal dyspnea. He did have lower extremity edema which may have improved but he still has some residual swelling at the level of his ankles and feet. PAST MEDICAL HISTORY/PROBLEM LIST: Hypertension. HOME MEDICATIONS: Included lisinopril 5 a day. ALLERGIES: No known drug allergies. SOCIAL HISTORY: No tobacco use. No alcohol use. FAMILY HISTORY: No early coronary disease. No history of blood clots, heart failure. REVIEW OF SYSTEMS: Overall health: No fevers, chills, night sweats, or weight loss. GI: He denies blood in his stool, hemorrhoids. : No dysuria, no hematuria. Pulmonary: Recent problems with increased shortness of breath. Cardiac: As per HPI. Endocrine: No heat or cold intolerance. Musculoskeletal: No acute issues. Ophtho: No vision changes. Heme: No easy bruising or bleeding. ENT: No difficultly swallowing, sore throat. No hearing difficulties. Psych: No acute issues. Derm: No rash or skin breakdown. All other review of systems on a 12-point review system are negative. PHYSICAL EXAMINATION: Blood pressure 148/102, heart rate 102, respiratory rate 20-24. Sats are 99% on room air. General: In no acute distress. Appearing somewhat short of breath. when I speak with him. Head and neck exam: He does have somewhat distended external jugular vein. Heart exam: Distant sounds. Irregular. No obvious murmurs, gallops, rubs appreciated. Lungs sound clear anteriorly. Back: No significant tenderness to palpation. Abdomen soft, nondistended, nontender. Vascular: No carotid bruits appreciated, 1 to 2+ distal pulses. Skin without breakdown appreciated. Neuro: Alert and interactive. Gait is not tested. Psych: Appropriate mood and affect. ENT: Mucous membranes are moist. Hearing intact. Ophtho: Vision grossly intact. CURRENT MEDICATIONS: Include: 1. Eliquis. 2. Lisinopril 20 daily. 3. Famotidine. 4. Aspirin. 5. Melatonin. 6. Heparin drip, which I believe was now discontinued. 7. Carvedilol 12.5 b.i.d. 8. He also was given an IV dose of Lasix, but I am not sure at what rate he was getting Lasix. His I's and O's show that he is only negative 81 thus far today. IMAGING: Shows initial chest x-ray that showed mild cardiomyopathy without acute cardiopulmonary disease. A CT angio showed multiple pulmonary emboli, bilateral pleural effusions with associated compressive atelectasis. There was also pulmonary edema. There was a small pericardial effusion and also bilateral perihilar bronchial wall thickening consistent with a nonspecific bronchiolitis with associated mild narrowing of the airways. Venous duplex did not show any DVTs. IMPRESSION: The patient has pulmonary emboli with a diffuse cardiomyopathy, some small amount of pericardial fluid, atrial fibrillation which was poorly controlled. Fortunately, he has a significant blood pressure which would allow us to adjust his blood pressure medicines upward. His heart rates have become better controlled with the Coreg but we certainly can increase the Coreg as the doses is only at 12.5 b.i.d. I do not see a repeat chest x-ray, but I would continue to diurese him and get more fluid off on him as he does have evidence for volume overload. Fortunately, he does not seem to have any hemodynamic compromise related to the pulmonary emboli Continue with the Eliquis, both for treatment of the pulmonary embolism, as well as the atrial fibrillation. Continue with lisinopril. I spent 40 minutes reviewing his notes, his imaging studies, speaking with the family about the history, and examining him. THEA
--- NOTE | 2016-12-22 18:00 | NUR ---
CV/Activity/Med teaching Continues in Atrial fib, resting rate 70s-80s, up to 120s with activity. Able to ambulate full length of PCC today 4 separate times. Using walker; increasingly steady on feet. Fatigue after activity; able to take 2 naps today. Review of medications with pt & family; pt expressing reluctance to "be on medications now when I have never needed them before". Pt's daughters discussing meds with pt; state they are planning to help him set-up a system to make it easier for him.
--- NOTE | 2016-12-22 19:00 | NUR ---
Ventricular ectopy / K+ & Mag checked->WNL MD notified; continue to monitor closely on TELE.
[2016-12-22 19:06] LABS: Magnesium 2.2 mg/dL (1.6-2.6)
[2016-12-23] VITALS (9 sets, daily range): BP systolic 144–182; BP diastolic 92–121; PULSE 72–100; RESP 18–24; O2SAT 95–98
[2016-12-23] MEDS: Sodium Chloride LOK Flush 10 mL Syringe IVFLUSH SCH ×4 (00:45→21:46)
[2016-12-23 06:15] LABS: BASOPHILS % (AUTO) 0.1 % (0-3); EOSINOPHILS % (AUTO) 1.7 % (0-5); MONOCYTES % (AUTO) 5.5 % (4-12); Mean Corpuscular Hemoglobin 29.7 pg (27.0-35.0); NEUTROPHILS % (AUTO) 77.4 % (40-74); Platelet Count 181 bil/L (150-400)
--- NOTE | 2016-12-23 06:19 | NUR ---
NOC PT has slept well most of the night. PT went to sleep early and woke early. HR remains irregular in afib but has been rate controlled. PT is still dyspneic with minimal activity. NOteable edema present from knees down bilaterally. Teds are on. DP are weak to palpate. Lungs are slightly decreased at bases bilaterally and RML has faint crackles heard this am. PT unable to clear them. Weak cough noted. PT up to bathroom independently and gait is steady. PT will likely d/c today.
--- NOTE | 2016-12-23 06:22 | NUR ---
NOC PT has slept well all night. Denies any CP or SOB. PT up ad kali to BR. PT does have pain with ambulation r/t her recent back surgery, but denies pain at rest. HR in sinus in 60's. R groin cath site c/d/i. VS WNL. WIll CTM.
[2016-12-23] MEDS ORDERED: MeTOProlol XL 25 mg ER24 Tablet PO ONE (10:00)
--- NOTE | 2016-12-23 11:02 | PROG NOTE ---
[address] [address] PROGRESS NOTE PATIENT: ODILIA BERNAL : 1935 MR#: [id number] ADMIT: 12/19/2016 JOB ID: [id number] DATE: 12/23/2016 SUBJECTIVE: The patient is an 81-year-old male, who presented with acute dyspnea beginning about a week ago and was admitted and found to have evidence of bilateral subsegmental pulmonary emboli without evidence of significant right ventricular enlargement or strain. An echocardiogram, however, was notable for diffuse left ventricular hypokinesis with an ejection fraction estimated at 30%, with evidence of ventricular hypertrophy and moderately severe pulmonary hypertension. This gentleman has had little in the way of medical care followup, although he had been on low-dose lisinopril for some time for management of his blood pressure. Since he has been in the hospital, his blood pressures have been significantly elevated and he remains moderately tachycardic with atrial fibrillation which is also a new diagnosis for him. His creatinine on admission was abnormal but increased as his lisinopril was reinstituted, and therefore, his lisinopril was discontinued today. The patient reports that he is feeling better, although lying in bed with his head propped up at about 40 degrees, he appears moderately orthoptic and mildly tachypneic. He has not ambulated to any great extent. He is now anticoagulated with Eliquis. PHYSICAL EXAM: Again, he is a pleasant, elderly gentleman, who appears in mild respiratory distress as noted above. He has prominent jugular venous distention with the internal jugular venous pulse visible at the angle of the jaw with the patient at 90 degrees. Lung montanez demonstrate diffuse mild rhonchi without obvious wheezing. Cardiac auscultation shows somewhat distant heart tones. I do not feel enlarged PMI. His 2nd heart sound is somewhat prominent. He does have a soft murmur of mitral insufficiency audible at the apex, and I do not hear an obvious ventricular gallop. Abdomen is unremarkable. Distal extremities show 1+ pedal and pretibial edema. The rest of his examination is unremarkable. LABORATORY WORK: Notable for a BNP on admission of 12,700. Lipid profile was remarkably good. His troponins were elevated but in an inconsistent stable pattern. Creatinine was 1.48 on admission, and that has increased slightly to 1.61 this morning. Sodium and potassium levels are normal. Transaminase levels are normal. The patient's echocardiogram, chest CT scan and chest x-ray are reviewed. He has evidence of significant and moderate ventricular hypertrophy, global left ventricular systolic dysfunction as mentioned. His chest x-ray shows evidence of pulmonary venous redistribution without significant edema. Echocardiogram also demonstrates absence of significant right ventricular enlargement. He does have moderately severe pulmonary hypertension which is probably related both to his acute pulmonary emboli and chronic hypertensive heart disease. As mentioned, his blood pressures have been high, ranging in the 160/110 range, and his heart rates have been persistently elevated in the 90-120 range in atrial fibrillation. IMPRESSION: 1. Bilateral subsegmental pulmonary emboli with reasonably good right ventricular (RV) function but moderately severe pulmonary hypertension. 2. 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 I suspect that this is multifactorial but predominantly associated with poorly controlled hypertension and perhaps atrial fibrillation which is of unknown duration with moderately rapid heart rate response. 3. Atrial fibrillation, possibly chronic, now anticoagulated, but needs better rate control. 4. Hypertension. As noted, I agree with discontinuing lisinopril at this point in time. We will start hydralazine 25 mg t.i.d., and I suspect he will need 50-100 mg t.i.d. I am also going to change his beta elsi to metoprolol succinate at 50 b.i.d., both for blood pressure control and rate control. 5. Renal insufficiency. Again, likely related to hypertensive nephrosclerosis. Aggressive antihypertensive therapy needed. 6. Nonsustained ventricular tachycardia: Telemetry has demonstrated several episodes of nonsustained ventricular tachycardia (VT). This patient needs to be observed in the hospital probably an additional 48 hours to optimize his medical therapy, appropriately diurese him, improve his clinical status, and we can determine if he is having recurrent nonsustained VT subsequently. He lives in [place] which is [place] ways away, and will likely require a Cardiology follow up where it is most convenient for him. If his ventricular function does not significantly improve over the next couple of months with aggressive medical therapy, then he would be a candidate to consider for an implantable cardioverter defibrillator (ICD). I would leave it to his follow up compliance engineer to determine if it would be reasonable to proceed with an ischemic evaluation, but I do not believe that is urgent at this point in time. 7. Pulmonary hypertension. Again, likely related to his PE and chronic left-sided elevated filling pressures.
--- NOTE | 2016-12-23 15:38 | DRSVH ---
PROCEDURE: US RENAL SONOGRAM INDICATIONS: acute kidney injury, possible CKD TECHNIQUE: Real-time scanning was performed of the kidneys and bladder, with image documentation. COMPARISON: None. FINDINGS: Kidneys: Kidneys are normal in size. Right kidney measures 9.1 cm long; left kidney measures 9.7 cm long. Right renal cortical thickness is 1.3 cm; left renal cortical thickness is 1.4 cm. Renal cor tical echotexture is normal. No hydronephrosis or nephrolithiasis. No suspicious solid mass lesions . Simple right renal exophytic cyst measuring roughly 22 mm Bladder: Pre-void bladder volume is 334 mL. Post-void residual is 52 mL. Pre-void images demonstra te no intraluminal masses or stones. On pre-void images, neither ureteral jets are noted with color Doppler interrogation. (Of note, ureteral jets may not be detectable in up to 25% of cases due to in sufficient differences in specific gravity between ureteral and bladder urine). Miscellaneous: No free pelvic fluid. IMPRESSION: 1. Right renal simple exophytic cyst otherwise normal kidneys. 2. 52 cc PVR. Dictated by: Delmar HEWITT Interpreted: Melvin Bhatia MD on 12/23/2016 at 15:37 Transcribed by: PAULINO on 12/23/2016 at 15:38 Approved by: Mark Bhatia M.D. on 12/23/2016 at 16:33
[2016-12-23] MEDS ORDERED: MeTOProlol XL 50 mg ER24 Tablet PO ONE (17:00)
[2016-12-23] MEDS: MeTOProlol XL 50 mg ER24 Tablet PO SCH (17:19)
--- NOTE | 2016-12-23 17:58 | NUR ---
Hypertension Patient hypertensive with systolic pressure in the 150-170s throughout shift despite taking several PO blood pressure medications including carvedilol, metoprolol and hydralazine. Patient denies pain/discomfort. Hospitalist and wireless construction manager aware. No new orders at this time.
--- NOTE | 2016-12-23 19:02 | PCM.PNMED ---
Subjective Date of Service Dec 23, 2016 Subjective 81-year-old male who presented with bilateral pulmonary embolisms in atrial fibrillation with newly identified systolic heart failure. Today, he feels much better. His breathing has improved and only intermittently feels like he cannot breath. He does not have chest pain or abdominal pain. Exam Vital Signs Vital Sign - Last Date Time Temp Pulse Resp B/P Pulse Ox O2 Delivery O2 Flow Rate FiO2 12/23/16 16:44 36.4 72 18 171/92 98 Room Air 12/21/16 03:00 2.00 Intake and Output 12/22/16 12/22/16 12/23/16 Cumulative From/Thru 15:00 23:00 07:00 12/19/16 09:38 - 12/23/16 05:11 Intake Total 400 ml 600 ml 7010 ml Output Total 800 ml 1225 ml 3725 ml Balance -400 ml -625 ml 3285 ml Intake Oral 400 ml 600 ml 3870 ml IV Total 3140 ml Output Urine Total 800 ml 1225 ml 3725 ml # Voids 5 # Bowel Movements 1 0 1 Exam Gen.: Patient awake alert in no acute distress HEENT: PERRLA, membranes pink, EOMI, nares patent, moderate JVD, no carotid bruit Lymph: No lymphadenopathy Cardio: Tachycardic with irregular rhythm with no murmurs, rubs, or gallops Respiratory: Clear to auscultation bilaterally in the anterior and lateral montanez. Abdomen: Positive bowel sounds; nontender, nondistended, soft Extremities: Mild pitting edema noted bilaterally on lower extremities, pedal pulses is difficult to palpate, radial pulses intact; strength is 4/5 Psych: Appropriate mood and affect Neuro: CN II through XII intact, grossly intact throughout Skin: Numerous seborrheic keratoses, no additional rashes IVs and Medications Medications Reviewed: Medications were reviewed in detail Lab and Diagnostics Result Diagram: 12/23/16 0505 12/23/16 0505 X-Rays, CTs and MRIs CT angiography of the chest 1. Multiple pulmonary emboli within subsegmental branches in the lower lobes. 2. Enlargement of the pulmonary arteries is present suggesting pulmonary arterial hypertension. No leftward deviation of the interventricular septum to definitely suggest right heart strain this time. Elevated right heart filling pressures are noted with reflux of contrast into the IVC and hepatic veins. 3. Bilateral pleural effusions, right greater than left, with associated compressive atelectasis. Pulmonary edema is also present as well as cardiomegaly. Constellation of findings are compatible with congestive heart failure. 4. Small to moderate sized pericardial effusion. 5. Bilateral perihilar bronchial wall thickening consistent with a nonspecific bronchiolitis with associated mild narrowing of the airways. Findings discussed with Dr. Mckeon on 12/19/16 at 11:55 AM. Dictated by: Pk Solomon M.D. on 12/19/2016 at 11:49 PROCEDURE: US VENOUS LEG DUPLEX BILATERAL IMPRESSION: No deep venous thrombosis identified within either the left or right lower extremities. Approved by: Phuc Collado M.D. on 12/19/2016 at 16:52 PROCEDURE: US RENAL SONOGRAM IMPRESSION: 1. Right renal simple exophytic cyst otherwise normal kidneys. 2. 52 cc PVR. Approved by: Mark Bhatia M.D. on 12/23/2016 at 16:33 12-lead ECG #1: rate 139 atrial fibrillation with RVR non specific ST changes #2 atrial fibrillation without ischemic changes: rate 76 Cardiac Echo Impressions Echocardiogram Report Interpretation Summary Left ventricular systolic function is severely reduced with the left ventricular ejection fraction visually estimated to be 25-35% with considerable [id number] variability with moderate to severe global hypokinesis of the left ventricle but no obvious focal wall motion abnormalities. There is mild concentric left ventricular hypertrophy. Diastolic function could not be accurately assessed due to atrial fibrillation. The right ventricle is normal size but right ventricular systolic function is moderately reduced. There is severe pulmonary hypertension with the right ventricular systolic pressure estimated at 66 mmHg assuming a right atrial pressure of 15 mm Hg. Both atria are severely dilated. There is moderate mitral regurgitation, mild aortic regurgitation, and mild tricuspid regurgitation. The ascending aorta is mild-moderately enlarged. There is a small pericardial effusion that is circumferential but is localized predominantly adjacent to the posterolateral wall without echocardiographic or Doppler indications for cardiac tamponade. The patient was in atrial fibrillation with heart rates between 87-119 bpm during the exam. Reading Physician:03:05 PM Assessment & Plan 81-year-old male with a history of hypertension presents to the ED for shortness of breath without chest pain and confirm pulmonary embolism on CT the chest with recent history of prolonged immobility on planes and in a car. Patient has symptoms of shortness of breath with exertion and increased edema in the lower extremities. No orthopnea or PND. Acute Pulmonary embolism; present on admission; ongoing -Patient presents with shortness of breath and confirm PE by CTA; provoked from recent extended immobility during travel. No DVT on lower extremity ultrasound -Patient assessed with echo for EKOS but does not meet criteria. -Patient placed on heparin protocol for PE and stopped after 24 hours and at the same time the first dose of apixaban is started -Switch to apixaban 10 mg BID for 7 days then 5 mg BID thereafter starting 12/21 Chronic systolic CHF; present on admission; ongoing. -Patient has not seen a doctor in some time and is only reported history of hypertension controlled with lisinopril 5 mg -Patient has new exertional dyspnea and edema of the lower extremities. -Echocardiogram reveals 25% EF - Metoprolol succinate 50 mg BID -Held lisinopril due to kidney function -Furosemide 40 mg -Morphine as needed for shortness of breath Severe asymptomatic hypertension; present on admission; ongoing -Patient presented with a blood pressure approximately 180/125 with no headache or other complaints -Patient given diltiazem 20 and amlodipine 5 in the ED -Will monitor for resolution -Labetalol 20 IV when necessary -Metoprolol as above and hydralazine 25 mg TID Acute kidney injury; present on admission, active -Most likely cardiorenal -Mucous membranes are pink but dry suggesting prerenal on presentation. Renal ultrasound as above. -Creatinine increased today; try additional diuretics for CHF/HTN; if continues to climb will stop -Recheck BMP tomorrow Atrial fibrillation, acute, present on admission, active. - Metoprolol as above - Eliquis for anticoagulation Elevated troponin; present on admission; ongoing -Likely due to acute kidney injury in context of PE and cardiomyopathy as a troponin is only 0.078 -Cardiology consulted. Their time and recommendations are appreciated. Hyperglycemia; present admission; ongoing -Unknown patient has been fasting -HgbA1c 5.6% -Low correctional insulin Disposition: Likely discharge home in the next 1-2 days pending improved blood pressure control and kidney function GI Prophylaxis: H2 elsi VTE Mechanical Devices: Anti-Embolic stockings Resuscitation Status: CPR: Attempt Resuscitation Attending Statement The patient was seen and examined together with Dr. Anguiano on 12/23/16 and I have added additional information to the note above. Oly Anguiano DO Dec 23, 2016 18:09 Sheri Beltran DO Dec 26, 2016 17:58
[2016-12-23] MEDS ORDERED: MeTOProlol XL 50 mg ER24 Tablet PO SCH (20:30)
[2016-12-24] VITALS (15 sets, daily range): BP systolic 140–173; BP diastolic 96–116; PULSE 70–98; RESP 16–24; O2SAT 96–99
--- NOTE | 2016-12-24 02:42 | NUR ---
pt forgetful/htn pt thought he was in a boat with initial assessment, but also seemed to be aware that he was somewhat confused, [place], bed alarm on, only has alarmed when pt has moved to use the urinal, temi good, tele= afib, hr 80-90's, denies cp ls= clear after cough, decreased, sob with exertion, ra sats = 94-965, resp rate 18-24, denies n/v pitting edema to ankles and calf area, eneida hose on, qr=639's/100-110 on left arm, 180/115 range on right arm, same range after hs antihypertensive, good oral care done at hs, see assessment charting, pt resting comfortably tonight,
[2016-12-24 04:53] LABS: BASOPHILS % (AUTO) 0.1 % (0-3); EOSINOPHILS % (AUTO) 1.2 % (0-5); MONOCYTES % (AUTO) 7.3 % (4-12); Mean Corpuscular Hemoglobin 29.5 pg (27.0-35.0); Mean Corpuscular Volume 90.2 fL (81-100); NEUTROPHILS % (AUTO) 81.3 % (40-74); Platelet Count 187 bil/L (150-400)
[2016-12-24] MEDS: Sodium Chloride LOK Flush 10 mL Syringe IVFLUSH SCH ×3 (07:56→23:23)
[2016-12-24] MEDS: MeTOProlol XL 50 mg ER24 Tablet PO SCH ×2 (07:57→19:59)
--- NOTE | 2016-12-24 11:32 | PROG NOTE ---
[address] [address] PROGRESS NOTE PATIENT: ODILIA BENRAL : 1935 MR#: [id number] ADMIT: 12/19/2016 JOB ID: [id number] DATE: 12/24/2016 SUBJECTIVE: The patient continues to note symptoms of mild orthopnea. Interestingly he seems to be able to ambulate without significant limiting symptoms of dyspnea but continues to look moderately tachypneic at rest. He has diuresed only a modest amount since admission and despite the adjustments with his medication yesterday he remains fairly hypertensive with heart rates in the 80-100 range. PHYSICAL EXAMINATION: Physical exam is notable for blood pressures in the 150-180 range systolic with diastolic pressures between 100 and 120. Heart rates are in the 80s and 90s generally with atrial fibrillation. His weight is 74 kg which is approximately his weight from admission. He continues to show markedly elevated central venous pressure with external jugular venous pulse visible below the ear lobe in the sitting position. Lungs are fairly clear without wheezing, rhonchi or rales. Cardiac auscultation shows an irregularly irregular rhythm and is otherwise unchanged from a prior exam. Distal extremities show no significant abnormalities. LABORATORY: Notable for mild hypernatremic. His creatinine seems stable at 1.54 and the rest of his blood work is okay. IMPRESSION: 1. Bilateral pulmonary emboli: Again this patient has prominent elevation in central venous pressure likely related to increased filling pressures of the right ventricle due to moderate pulmonary hypertension related in part to his left ventricular pressure elevations as well as his subsegmental pulmonary emboli. He will benefit from continued more aggressive diuresis. 2. 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 Atrial fibrillation, of course, plays a role with his ventricular systolic dysfunction and he will benefit from more aggressive blood pressure control. I have gone ahead and increased his metoprolol succinate to 75 mg b.i.d., and his hydralazine to 50 mg t.i.d. in addition to initiating diuretic therapy with furosemide 40 mg daily. 3. Atrial fibrillation: He should benefit with additional rate control with metoprolol succinate. He is anticoagulated with Eliquis. I have discontinued his aspirin therapy since that is generally contraindicated with the use of the new anticoagulant medications. 4. Hypertension: See notes above. 5. Renal insufficiency: Clinically stable. 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 6. Nonsustained ventricular tachycardia: Again this will be helped by optimizing his blood pressure control and with his beta lesi therapy. I have spoken with him about contacting his primary care provider in [place] so that he can be scheduled to follow up with a deck steward within a couple of weeks of his discharge. His primary care provider in [place] should be able to facilitate referral to a local deck steward. I will be happy to follow up with this gentleman's care tomorrow with further recommendations as needed.
--- NOTE | 2016-12-24 15:36 | PCM.PNMED ---
Subjective Date of Service Dec 24, 2016 Subjective 81-year-old male who presented with bilateral pulmonary embolisms in atrial fibrillation with newly identified systolic heart failure. He continues to have intermittent episodes of dyspnea, and it varies with positions. It gets worse with exertion. He does not have chest pain or abdominal pain. His appetite is good. Exam Vital Signs Vital Sign - Last Date Time Temp Pulse Resp B/P Pulse Ox O2 Delivery O2 Flow Rate FiO2 12/24/16 14:54 142/96 12/24/16 12:47 36.7 20 98 Room Air 12/24/16 09:32 98 12/21/16 03:00 2.00 Intake and Output 12/23/16 12/23/16 12/24/16 Cumulative From/Thru 15:00 23:00 07:00 12/19/16 09:38 - 12/24/16 06:26 Intake Total 600 ml 440 ml 8050 ml Output Total 1300 ml 1125 ml 6150 ml Balance -700 ml -685 ml 1900 ml Intake Oral 600 ml 440 ml 4910 ml IV Total 3140 ml Output Urine Total 1300 ml 1125 ml 6150 ml # Voids 5 # Bowel Movements 0 0 1 Exam Gen.: Patient awake alert in no acute distress HEENT: PERRLA, membranes pink, EOMI, nares patent, mild to moderate JVD, no carotid bruit Lymph: No lymphadenopathy Cardio: Tachycardic with irregular rhythm with no murmurs, rubs, or gallops Respiratory: Clear to auscultation bilaterally in the anterior and lateral montanez. Abdomen: Positive bowel sounds; nontender, nondistended, soft Extremities: Mild pitting edema noted bilaterally on lower extremities, pedal pulses is difficult to palpate, radial pulses intact; strength is 4/5 Psych: Appropriate mood and affect Neuro: CN II through XII intact, grossly intact throughout Skin: Numerous seborrheic keratoses, no additional rashes IVs and Medications Medications Reviewed: Medications were reviewed in detail Lab and Diagnostics Result Diagram: 12/24/1644212/24/16442 X-Rays, CTs and MRIs CT angiography of the chest 1. Multiple pulmonary emboli within subsegmental branches in the lower lobes. 2. Enlargement of the pulmonary arteries is present suggesting pulmonary arterial hypertension. No leftward deviation of the interventricular septum to definitely suggest right heart strain this time. Elevated right heart filling pressures are noted with reflux of contrast into the IVC and hepatic veins. 3. Bilateral pleural effusions, right greater than left, with associated compressive atelectasis. Pulmonary edema is also present as well as cardiomegaly. Constellation of findings are compatible with congestive heart failure. 4. Small to moderate sized pericardial effusion. 5. Bilateral perihilar bronchial wall thickening consistent with a nonspecific bronchiolitis with associated mild narrowing of the airways. Findings discussed with Dr. Mckeon on 12/19/16 at 11:55 AM. Dictated by: Pk Solomon M.D. on 12/19/2016 at 11:49 PROCEDURE: US VENOUS LEG DUPLEX BILATERAL IMPRESSION: No deep venous thrombosis identified within either the left or right lower extremities. Approved by: Phuc Collado M.D. on 12/19/2016 at 16:52 PROCEDURE: US RENAL SONOGRAM IMPRESSION: 1. Right renal simple exophytic cyst otherwise normal kidneys. 2. 52 cc PVR. Approved by: Mark Bhatia M.D. on 12/23/2016 at 16:33 12-lead ECG #1: rate 139 atrial fibrillation with RVR non specific ST changes #2 atrial fibrillation without ischemic changes: rate 76 Cardiac Echo Impressions Echocardiogram Report Interpretation Summary Left ventricular systolic function is severely reduced with the left ventricular ejection fraction visually estimated to be 25-35% with considerable ufod-rt-pyrt variability with moderate to severe global hypokinesis of the left ventricle but no obvious focal wall motion abnormalities. There is mild concentric left ventricular hypertrophy. Diastolic function could not be accurately assessed due to atrial fibrillation. The right ventricle is normal size but right ventricular systolic function is moderately reduced. There is severe pulmonary hypertension with the right ventricular systolic pressure estimated at 66 mmHg assuming a right atrial pressure of 15 mm Hg. Both atria are severely dilated. There is moderate mitral regurgitation, mild aortic regurgitation, and mild tricuspid regurgitation. The ascending aorta is mild-moderately enlarged. There is a small pericardial effusion that is circumferential but is localized predominantly adjacent to the posterolateral wall without echocardiographic or Doppler indications for cardiac tamponade. The patient was in atrial fibrillation with heart rates between 87-119 bpm during the exam. Reading Physician:03:05 PM Assessment & Plan 81-year-old male with a history of hypertension presents to the ED for shortness of breath without chest pain and confirm pulmonary embolism on CT the chest with recent history of prolonged immobility on planes and in a car. Patient has symptoms of shortness of breath with exertion and increased edema in the lower extremities. No orthopnea or PND. Acute Pulmonary embolism; present on admission; ongoing -Patient presents with shortness of breath and confirm PE by CTA; provoked from recent extended immobility during travel. No DVT on lower extremity ultrasound -Patient assessed with echo for EKOS but did not meet criteria. -Patient placed on heparin protocol for PE and stopped after 24 hours and at the same time the first dose of apixaban is started -Switch to apixaban 10 mg BID for 7 days then 5 mg BID thereafter, started 12/22 Chronic systolic CHF; present on admission; ongoing. -Patient has not seen a doctor in some time and is only reported history of hypertension controlled with lisinopril 5 mg -Patient has new exertional dyspnea and edema of the lower extremities. -Echocardiogram reveals 25% EF and diffuse hypokinesis -Metoprolol succinate 75 mg BID -Held lisinopril due to kidney function -Furosemide 40 mg once daily scheduled now -Morphine as needed for shortness of breath Severe asymptomatic hypertension; present on admission; ongoing -Patient presented with a blood pressure approximately 180/125 with no headache or other complaints -Patient given diltiazem 20 and amlodipine 5 in the ED -Will monitor for resolution -Labetalol 20 IV when necessary -Metoprolol as above and hydralazine 50 mg TID Acute kidney injury; present on admission, stable -Most likely cardiorenal -Renal ultrasound as above. -Additional diuretics for CHF/HTN; if continues to climb will stop -Recheck BMP tomorrow Atrial fibrillation, acute, present on admission, active. - Metoprolol as above - Eliquis for anticoagulation Elevated troponin; present on admission; ongoing -Likely due to acute kidney injury in context of PE and cardiomyopathy as a troponin is only 0.078 -Cardiology consulted. Their time and recommendations are appreciated. Hyperglycemia; present admission; ongoing -Unknown patient has been fasting -HgbA1c 5.6% -Low correctional insulin Disposition: Likely discharge home in the next 1-2 days pending improved blood pressure control and kidney function GI Prophylaxis: H2 elsi VTE Mechanical Devices: Anti-Embolic stockings Resuscitation Status: CPR: Attempt Resuscitation Attending Statement The patient was seen and examined together with Dr. Anguiano on 12/24/16 and I have added additional information to the note above. Oly Anguiano DO Dec 24, 2016 15:36 Sheri Beltran Dec 26, 2016 18:00
[2016-12-25] VITALS (22 sets, daily range): BP systolic 127–188; BP diastolic 84–139; PULSE 64–97; RESP 16–22; O2SAT 96–100
[2016-12-25] MEDS: MeTOProlol 1 mg/mL 5 mL Inj IVPUSH SCH ×2 (04:34→05:25)
[2016-12-25 05:22] LABS: BASOPHILS % (AUTO) 0.1 % (0-3); EOSINOPHILS % (AUTO) 1.1 % (0-5); MONOCYTES % (AUTO) 6.6 % (4-12); Mean Corpuscular Hemoglobin 29.5 pg (27.0-35.0); Mean Corpuscular Volume 90.2 fL (81-100); NEUTROPHILS % (AUTO) 80.8 % (40-74); Platelet Count 187 bil/L (150-400)
--- NOTE | 2016-12-25 06:31 | NUR ---
HTN: P: DBP up to the 130s early this morning. I: Dr. Rutherford notified of increasing diastolic pressures. Order obtained to give IV Metoprolol 5 mg up to 3 times for a DBP >110. Two doses given this am. E: Last blood pressure on the right arm is 158/103. Will update oncoming staff. Pt stable.
--- NOTE | 2016-12-25 06:34 | NUR ---
Confusion: Pt was confused last night and stated that he knew he was confused. Pt alert and oriented this am. However, discouraged d/t his htn. Will cont. to monitor.
[2016-12-25] MEDS: Sodium Chloride LOK Flush 10 mL Syringe IVFLUSH SCH ×2 (08:18→15:55)
[2016-12-25] MEDS: MeTOProlol XL 50 mg ER24 Tablet PO SCH ×3 (08:18→21:05)
[2016-12-25] MEDS ORDERED: MeTOProlol XL 25 mg ER24 Tablet PO ONE (09:00)
--- NOTE | 2016-12-25 10:21 | PROG NOTE ---
[address] [address] PROGRESS NOTE PATIENT: ODILIA BERNAL : 1935 MR#: [id number] ADMIT: 12/19/2016 JOB ID: [id number] DATE: 12/25/2016 SUBJECTIVE: The patient remains significantly hypertensive despite escalating doses of antihypertensive therapy. Clinically, he seems to be getting along well, and I watched him make a lap around the [place] yesterday with his walker which he did without significant problems, certainly not limiting dyspnea. He has had occasional nighttime confusion but seems to be doing well clinically. He has not had problems of symptomatic orthopnea or PND. Once again, his blood pressure remains in the 150-180 range systolic and in the 120-140 range diastolic. His diuretics could be augmented since his urinary output is -1 L yesterday and his weight at 74.3 kg is not significantly different from his admission weight. OBJECTIVE: His examination is otherwise unchanged. Laboratory work notable for stable renal function. Creatinine today 1.39. His electrolytes are normal. RECOMMENDATIONS: I have increased this gentleman's antihypertensive therapy adding amlodipine at 10 mg a day, increasing his metoprolol to 100 mg, metoprolol succinate twice daily, and increasing his furosemide to 80 mg a day. He is on hydralazine 50 mg t.i.d. which could be increased to 100 mg t.i.d. tomorrow if he remains hypertensive, and is on Eliquis as well for anticoagulation. Nitropaste probably should be discontinued and changed to isosorbide 60-120 mg daily. Since this patient is clinically stable, I would observe him another 24 hours to determine how he responds to his medication and make sure that he has appropriate followup scheduled when he returns to . At this time I will plan to sign off of his care and if further recommendations are needed, do not hesitate to give me a call.
--- NOTE | 2016-12-25 14:26 | PCM.PNMED ---
Subjective Date of Service Dec 25, 2016 Subjective 81-year-old male who presented with bilateral pulmonary embolisms in atrial fibrillation with newly identified systolic heart failure. Today, he reports that his breathing is intermittently difficult, especially when he is in bed and cannot move around as much. He breathes better when sitting in a chair. He does not have chest pain. His abdominal muscle spasms when he has trouble breathing. His daughter reports that he gets anxious especially since he is not as busy as he usually is when he is at home. He worries a lot. She also feels that it may contribute to his high blood pressure. Exam Vital Signs Vital Sign - Last Date Time Temp Pulse Resp B/P Pulse Ox O2 Delivery O2 Flow Rate FiO2 12/25/16 11:58 36.3 78 22 148/89 100 Room Air 12/21/16 03:00 2.00 Intake and Output 12/24/16 12/24/16 12/25/16 Cumulative From/Thru 15:00 23:00 07:00 12/19/16 09:38 - 12/25/16 06:57 Intake Total 480 ml 318 ml 8848 ml Output Total 900 ml 150 ml 7200 ml Balance -420 ml 168 ml 1648 ml Intake Oral 480 ml 318 ml 5708 ml IV Total 3140 ml Output Urine Total 900 ml 150 ml 7200 ml # Voids 2 7 # Bowel Movements 1 Exam Gen.: Patient awake alert in no acute distress sitting upright in a bedside chair HEENT: PERRLA, membranes pink, EOMI, nares patent, mild to moderate JVD Lymph: No lymphadenopathy Cardio: Irregularly irregular with no murmurs, rubs, or gallops Respiratory: Clear to auscultation bilaterally in the anterior and lateral montanez. Abdomen: Positive bowel sounds; nontender, nondistended, soft Extremities: Moderate pitting edema noted bilaterally on lower extremities up to the ankles, pedal pulses is difficult to palpate, radial pulses intact; strength is 4/5 Psych: Appropriate mood and affect Neuro: CN II through XII intact, grossly intact throughout Skin: Numerous seborrheic keratoses, no additional rashes IVs and Medications Medications Reviewed: Medications were reviewed in detail Lab and Diagnostics Result Diagram: 12/25/168 12/25/16 045 X-Rays, CTs and MRIs CT angiography of the chest 1. Multiple pulmonary emboli within subsegmental branches in the lower lobes. 2. Enlargement of the pulmonary arteries is present suggesting pulmonary arterial hypertension. No leftward deviation of the interventricular septum to definitely suggest right heart strain this time. Elevated right heart filling pressures are noted with reflux of contrast into the IVC and hepatic veins. 3. Bilateral pleural effusions, right greater than left, with associated compressive atelectasis. Pulmonary edema is also present as well as cardiomegaly. Constellation of findings are compatible with congestive heart failure. 4. Small to moderate sized pericardial effusion. 5. Bilateral perihilar bronchial wall thickening consistent with a nonspecific bronchiolitis with associated mild narrowing of the airways. Findings discussed with Dr. Mckeon on 12/19/16 at 11:55 AM. Dictated by: Pk Solomon M.D. on 12/19/2016 at 11:49 PROCEDURE: US VENOUS LEG DUPLEX BILATERAL IMPRESSION: No deep venous thrombosis identified within either the left or right lower extremities. Approved by: Phuc Collado M.D. on 12/19/2016 at 16:52 PROCEDURE: US RENAL SONOGRAM IMPRESSION: 1. Right renal simple exophytic cyst otherwise normal kidneys. 2. 52 cc PVR. Approved by: Mark Bhatia M.D. on 12/23/2016 at 16:33 12-lead ECG #1: rate 139 atrial fibrillation with RVR non specific ST changes #2 atrial fibrillation without ischemic changes: rate 76 Cardiac Echo Impressions Echocardiogram Report Interpretation Summary Left ventricular systolic function is severely reduced with the left ventricular ejection fraction visually estimated to be 25-35% with considerable [id number]-[id number] variability with moderate to severe global hypokinesis of the left ventricle but no obvious focal wall motion abnormalities. There is mild concentric left ventricular hypertrophy. Diastolic function could not be accurately assessed due to atrial fibrillation. The right ventricle is normal size but right ventricular systolic function is moderately reduced. There is severe pulmonary hypertension with the right ventricular systolic pressure estimated at 66 mmHg assuming a right atrial pressure of 15 mm Hg. Both atria are severely dilated. There is moderate mitral regurgitation, mild aortic regurgitation, and mild tricuspid regurgitation. The ascending aorta is mild-moderately enlarged. There is a small pericardial effusion that is circumferential but is localized predominantly adjacent to the posterolateral wall without echocardiographic or Doppler indications for cardiac tamponade. The patient was in atrial fibrillation with heart rates between 87-119 bpm during the exam. Reading Physician:03:05 PM Assessment & Plan 81-year-old male with a history of hypertension presents to the ED for shortness of breath without chest pain and confirm pulmonary embolism on CT the chest with recent history of prolonged immobility on planes and in a car. Patient has symptoms of shortness of breath with exertion and increased edema in the lower extremities. No orthopnea or PND. Severe asymptomatic hypertension; present on admission; ongoing -Patient presented with a blood pressure approximately 180/125 with no headache or other complaints -Patient given diltiazem 20 and amlodipine 5 in the ED -Will monitor for resolution -Metoprolol increased to 100 mg BID, continued hydralazine 50 mg TID, added amlodipine 10 mg once daily, and increased furosemide to 80 mg daily per cardiology. His time and recommendations are appreciated. Recommended that if continued hypertension that hydralazine could be increased to 100 mg t.i.d. tomorrow and nitropaste should be discontinued and changed to isosorbide 60-120 mg daily. -Discussed with patient that it is recommended that he not drive until he is seen by his primary care provider as his blood pressure has been labile during this hospitalization and at times been severely elevated Acute on chronic systolic congestive heart failure; present on admission; ongoing. -Patient has not seen a doctor in some time and is only reported history of hypertension controlled with lisinopril 5 mg -Patient has new exertional dyspnea and edema of the lower extremities. -Echocardiogram reveals 25-35% EF and diffuse hypokinesis. BNP 54979 on admission. -Metoprolol succinate 100 mg BID -Held lisinopril due to kidney function -Furosemide 80 mg once daily scheduled -Morphine as needed for shortness of breath Acute Pulmonary embolism; present on admission; stable -Associated pulmonary hypertension -Patient presented with shortness of breath and confirmed PE by CTA; provoked from recent extended immobility during travel. No DVT on lower extremity ultrasound -Patient assessed with echo for EKOS but did not meet criteria. -Patient placed on heparin protocol for PE and stopped at the same time the first dose of apixaban is started -Switched to apixaban 10 mg BID for 7 days then 5 mg BID thereafter, started 11/04 Atrial fibrillation, acute, present on admission, active. - Monitor on telemetry - Metoprolol as above - Eliquis for anticoagulation Non-sustained ventricular tachycardia, recurrent, active. -7 beats previously and 13 beats today. Pt asymptomatic. On metoprolol. -Cardiology recommended that if his ventricular function does not significantly improve over the next couple of months with aggressive medical therapy, then he would be a candidate to consider for an implantable cardioverter defibrillator ( ICD). Acute kidney injury; present on admission, improving -Most likely cardiorenal -Renal ultrasound as above. -Additional diuretics for CHF/HTN; if continues to climb will stop -Recheck BMP tomorrow Insomnia, present on admission. - Possibly secondary to chronic anxiety - He has had insomnia during this hospitalization. His daughter reports concern about possible anxiety. - Melatonin and hydroxyzine did not provider relief. Ambien caused pt to be disoriented. - Restoril 7.5 mg at bedtime as needed for insomnia. - Recommend discussion with PCP about long-term medication for possibly chronic anxiety Elevated troponin; present on admission -Likely due to acute kidney injury in context of PE and cardiomyopathy as troponin was only 0.078 -Cardiology consulted. Their time and recommendations are appreciated. 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 Hyperglycemia; present admission; ongoing -Unknown patient has been fasting -HgbA1c 5.6% -Low correctional insulin Disposition: Likely discharge home in the next 1-2 days pending improved blood pressure control and kidney function GI Prophylaxis: H2 elsi VTE Mechanical Devices: Anti-Embolic stockings Resuscitation Status: CPR: Attempt Resuscitation Attending Statement The patient was seen and examined together with Dr. Anguiano on 12/25/16 and I have added additional information to the note above. Oly Anguiano DO Dec 25, 2016 13:56 Sheri Beltran DO Dec 26, 2016 18:03
--- NOTE | 2016-12-25 15:10 | NUR ---
Social Work Note: Continued Discharge Planning Data& Assessment: Due to pt confusion, SW spoke with pt daughter Cierra ([phone]) to check in regarding discharge plan and assess for any unmet needs. Pt daughter confirmed plan to discharge home when medically ready via family transport. Pt son lives in [place] and pt daughters live in [facility]. Pt daughter obtaining walker privately. Pt daughter denies any other needs. No other discharge needs identified at this time. SW to continue to follow. Plan: Anticipated discharge home via POV when medically ready. Pt daughter denies any other needs. No other discharge needs identified at this time. SW to continue to follow. MCKAYLA Hayes
--- NOTE | 2016-12-25 17:08 | NUR ---
Mentation/BP/Tele When checked on patient through the day pt A&O x3. However having bouts of confusion. Trying to walk off the unit to get to his car. Pt reoriented, however stating understanding being at the hospital however is upset that his daughter took his keys. Reminded pt, recommended pt not drive, pt upset however stating "fine I'll stay in the room". Pt refusing to wear non-skid socks even with teaching. Pt's BP at start of shift was 150/120, given pt AM meds, recheck BP through the day and pt's DBP has been sustaining below 100. Pt had 13 beats of Vtach at about 1250, pt asymptomatic, made aware. No new orders at this time. Ongoing care.
[2016-12-26] MEDS: Sodium Chloride LOK Flush 10 mL Syringe IVFLUSH SCH ×2 (00:36→08:19)
[2016-12-26 03:10] VITALS: BP 154/99; PULSE 75; RESP 22; O2SAT 87
[2016-12-26 04:10] LABS: BASOPHILS % (AUTO) 0.2 % (0-3); EOSINOPHILS % (AUTO) 1.5 % (0-5); MONOCYTES % (AUTO) 6.8 % (4-12); Mean Corpuscular Hemoglobin 28.5 pg (27.0-35.0); Mean Corpuscular Volume 91.8 fL (81-100); NEUTROPHILS % (AUTO) 77.8 % (40-74); Platelet Count 138 bil/L (150-400)
[2016-12-26 04:38] VITALS: PULSE 83
[2016-12-26 05:08] LABS: BASOPHILS % (AUTO) 0.1 % (0-3); EOSINOPHILS % (AUTO) 1.2 % (0-5); MONOCYTES % (AUTO) 6.8 % (4-12); Mean Corpuscular Hemoglobin 29.6 pg (27.0-35.0); Mean Corpuscular Volume 90.7 fL (81-100); NEUTROPHILS % (AUTO) 79.7 % (40-74); Platelet Count 204 bil/L (150-400)
--- NOTE | 2016-12-26 06:20 | NUR ---
Cardiac/Resp Patient resting in chair, independent in room, no O2 needed this shift,pleasant and cooperative, denies any chest pain, up ambulating in room, BP stable and SBP <100 this AM, no distress noted, uneventful shift, will continue to monitor. Addendum: 12/26/16 at 0623 by FRANTZ JOHNSON RN Amended: Links added.
[2016-12-26 07:58] VITALS: BP 137/89; PULSE 63; RESP 18; O2SAT 98
[2016-12-26 08:00] VITALS: PULSE 84
[2016-12-26] MEDS: MeTOProlol XL 50 mg ER24 Tablet PO SCH (08:18)
[2016-12-26] MEDS ORDERED: Isosorbide Mononitrate 30 mg ER24 Tablet PO ONE (08:35)
[2016-12-26] MEDS ORDERED: Isosorbide Mononitrate 60 mg ER24 Tablet PO ONE (08:40)
[2016-12-26] MEDS ORDERED: METO-272 PO (09:20)
[2016-12-26] MEDS ORDERED: HYDR-3940 PO (09:20)
[2016-12-26] MEDS ORDERED: FURO40TA4 PO (09:20)
[2016-12-26] MEDS ORDERED: ISOS60TA2 PO ×3 (09:20→14:34)
[2016-12-26] MEDS ORDERED: APIX5TAB PO (09:20)
[2016-12-26] MEDS ORDERED: AMLO5TAB2 PO (09:20)
--- NOTE | 2016-12-26 10:25 | PCM.DIMED ---
Oly Anguiano DO 12/26/16 1025: Discharge Instructions Date of Service Dec 26, 2016 Dates of Hospitalization Dec 19, 2016 at 12:59 Discharge Diagnosis Discharge Diagnosis You have blood clots in your lungs, an irregular heart beat, your heart is not pumping as well as it used to pump, and your blood pressure has been high. Diet Discharge Diet: Heart Healthy Activity Discharge Activity: Limited until seen by PCP Call your provider Call your provider for: Fever or Chills, Shortness of breath, Bleeding, Chest pain, Vomitting, Excessive diarrhea, Weakness (unilateral) Patient Instructions Patient Instructions For your blood pressure and heart, start taking amlodipine at 10 mg a day, metoprolol succinate 100 mg twice daily, furosemide 80 mg once a day, and hydralazine 50 mg three times per day. We recommend that you do not drive until you have seen your primary care provider to make sure that your blood pressure continues to be well controlled. The metoprolol also helps with controlling your heart rate. Stop lisinopril and hydrochlorothiazide. For your blood thinner for stroke prevention and for the blood clots in your lungs, continue Eliquis 10 mg twice per day for the next 5 days and then 5 mg twice per day thereafter. Follow up with your primary care provider, Dr. Bowers, within 7 days. You should discuss possibly checking your kidney function with a basic metabolic panel at that time. If your blood pressure is elevated, your doctor may consider possibly adding isosorbide mononitrate 60 mg once daily. You can discuss possibly setting up home health services with nursing and physical therapy as well. You will also need to follow up with a cardiology, heart doctor, as soon as possible. You should discuss possibly getting another ultrasound of your heart ( echocardiogram) to see if it has changed in 3-6 months. In the future, you may need to discuss if you are a candidate for an implantable cardioverter- defibrillator (ICD) to prevent abnormal heart rhythms. Follow-up Provider: OTHER,PHYSICIAN Follow-up with PCP in: 1 week (Dr. Charla Bowers in [place], [place]) Sheri Beltran DO 12/26/16 1600: Discharge Instructions Attending's Statement The patient was seen and examined together with Dr. Anguiano on 12/26/16 and I agree with the history, exam and plan as outlined in the note above. Oly Anguiano DO Dec 26, 2016 10:25 Sheri Beltran Dec 26, 2016 16:00
[2016-12-26 10:45] VITALS: BP 131/71; PULSE 85; RESP 20; O2SAT 98
[2016-12-26 12:43] VITALS: BP 158/108
--- NOTE | 2016-12-26 12:52 | NUR ---
Discharge of patient Reviewed discharge instructions with patient and patient's daughter. Both verbalized understanding. Patient discharged via wheelchair with instructions. Prescriptions sent to pharmacy in [place] per pt's daughter's request. IV and Telemetry previously discontinued. Pt left hospital with daughter to home self care.
--- NOTE | 2016-12-26 14:26 | PCM.DC.MED ---
Discharge Summary Date of Service Dec 26, 2016 Dates of Hospitalization Date of Hospital Admission Dec 19, 2016 at 12:59 Date of Discharge: Dec 26, 2016 Providers: Admitting Physician: Charlie Sales MD Primary Care Physician: Nopjillian Attending Physician: Charlie Sales MD Diagnosis at Time of Discharge Diagnosis at Time of Discharge Severe asymptomatic hypertension Acute on chronic systolic congestive heart failure Acute Pulmonary embolism Atrial fibrillation Non-sustained ventricular tachycardia Acute kidney injury Insomnia Elevated troponin Hyperglycemia Consultations Cardiology: Recommended that if continued hypertension that hydralazine could be increased to 100 mg t.i.d. tomorrow and nitropaste should be discontinued and changed to isosorbide 60-120 mg daily. Recommended that if his ventricular function does not significantly improve over the next couple of months with aggressive medical therapy, then he would be a candidate to consider for an implantable cardioverter defibrillator (ICD). 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 Procedures XRay, CTs & MRIs CT angiography of the chest 1. Multiple pulmonary emboli within subsegmental branches in the lower lobes. 2. Enlargement of the pulmonary arteries is present suggesting pulmonary arterial hypertension. No leftward deviation of the interventricular septum to definitely suggest right heart strain this time. Elevated right heart filling pressures are noted with reflux of contrast into the IVC and hepatic veins. 3. Bilateral pleural effusions, right greater than left, with associated compressive atelectasis. Pulmonary edema is also present as well as cardiomegaly. Constellation of findings are compatible with congestive heart failure. 4. Small to moderate sized pericardial effusion. 5. Bilateral perihilar bronchial wall thickening consistent with a nonspecific bronchiolitis with associated mild narrowing of the airways. Findings discussed with Dr. Mckeon on 12/19/16 at 11:55 AM. Dictated by: Pk Solomon M.D. on 12/19/2016 at 11:49 PROCEDURE: US VENOUS LEG DUPLEX BILATERAL IMPRESSION: No deep venous thrombosis identified within either the left or right lower extremities. Approved by: Phuc Collado M.D. on 12/19/2016 at 16:52 PROCEDURE: US RENAL SONOGRAM IMPRESSION: 1. Right renal simple exophytic cyst otherwise normal kidneys. 2. 52 cc PVR. Approved by: Mark Bhatia M.D. on 12/23/2016 at 16:33 ECG 12 Lead #1: rate 139 atrial fibrillation with RVR non specific ST changes #2 atrial fibrillation without ischemic changes: rate 76 Cardiac Echo Impression Echocardiogram Report Interpretation Summary Left ventricular systolic function is severely reduced with the left ventricular ejection fraction visually estimated to be 25-35% with considerable [id number] variability with moderate to severe global hypokinesis of the left ventricle but no obvious focal wall motion abnormalities. There is mild concentric left ventricular hypertrophy. Diastolic function could not be accurately assessed due to atrial fibrillation. The right ventricle is normal size but right ventricular systolic function is moderately reduced. There is severe pulmonary hypertension with the right ventricular systolic pressure estimated at 66 mmHg assuming a right atrial pressure of 15 mm Hg. Both atria are severely dilated. There is moderate mitral regurgitation, mild aortic regurgitation, and mild tricuspid regurgitation. The ascending aorta is mild-moderately enlarged. There is a small pericardial effusion that is circumferential but is localized predominantly adjacent to the posterolateral wall without echocardiographic or Doppler indications for cardiac tamponade. The patient was in atrial fibrillation with heart rates between 87-119 bpm during the exam. Reading Physician:03:05 PM Brief History 81-year-old male with past medical history of hypertension presents from the emergency room via ambulance from the urgent care secondary to 4 days of painless shortness of breath on exertion. The patient recently went to [place] and 5 days prior to admission he was on a plane traveling. The patient also states that he lives in [place] which is a 3-4hours away and he does this on a regular basis. CT angiogram was done and revealed the patient had multiple pulmonary emboli within the subsegmental branches of the lower lobes Hospital Course 81-year-old male with a history of hypertension presents to the ED for shortness of breath without chest pain and confirm pulmonary embolism on CT the chest with recent history of prolonged immobility on planes and in a car. Patient has symptoms of shortness of breath with exertion and increased edema in the lower extremities. A CT scan showed multiple bilateral pulmonary emboli. He was started on anticoagulation. He also had atrial fibrillation. An echocardiogram showed an EF of 25-35%. His blood pressure was severely hypertensive, which required medication adjustment to control. The patient was a difficult case as his hypertension was very difficult to control. The patient was placed on high-dose metoprolol and hydralazine in order to control his blood pressure. The patient was also called in a prescription for Imdur 60 mg daily as his blood pressure upon discharge was 158/ 105. There have also been concerns about the patient driving and has been recommended that the patient does not drive until cleared by his primary care physician. With the patient's blood pressures being so labile there is risk for stroke. This has been explained to the patient which is why it would make him a danger to drive as well as the patient having a new diagnosis of A. fib. This was explained to the daughters as well are all in agreement with this plan. The patient stated that he would comply with this plan and will follow- up with his primary care physician. He was discharged home to [place], [place] in stable condition. See below for a more detailed outline of his hospital course: Severe asymptomatic hypertension; present on admission; ongoing -Patient presented with a blood pressure approximately 180/125 with no headache or other complaints -Patient given diltiazem 20 and amlodipine 5 in the ED -Will monitor for resolution -Metoprolol increased to 100 mg BID, continued hydralazine 50 mg TID, added amlodipine 10 mg once daily, and increased furosemide to 80 mg daily per cardiology. His time and recommendations are appreciated. Recommended that if continued hypertension that hydralazine could be increased to 100 mg t.i.d. tomorrow and nitropaste should be discontinued and changed to isosorbide 60-120 mg daily. -I called the [facility] at [place], [place] and added isosorbide mononitrate ER 60 mg once daily based on patient's last blood pressure reading. Called patient' s daughter, Cierra, and relayed the information to her that the medication was called into the pharmacy. Also notified Cierra that her father should not take vardenafil while taking isosorbide mononitrate. She verbalized understanding of the plan. -Discussed with patient that it is recommended that he not drive until he is seen by his primary care provider as his blood pressure has been labile during this hospitalization and at times been severely elevated Acute on chronic systolic congestive heart failure; present on admission; ongoing. -Patient had not seen a doctor in some time and was only reported history of hypertension controlled with lisinopril 5 mg -Patient had new exertional dyspnea and edema of the lower extremities. -Echocardiogram reveals 25-35% EF and diffuse hypokinesis. BNP 35859 on admission. -Metoprolol succinate 100 mg BID -Held lisinopril due to kidney function -Furosemide 80 mg once daily scheduled Acute Pulmonary embolism; present on admission; stable -Associated pulmonary hypertension -Patient presented with shortness of breath and confirmed PE by CTA; provoked from recent extended immobility during travel. No DVT on lower extremity ultrasound -Patient assessed with echo for EKOS but did not meet criteria. -Patient placed on heparin protocol for PE and stopped at the same time the first dose of apixaban is started -Switched to apixaban 10 mg BID for 7 days then 5 mg BID thereafter, started 11/04. Once patient has been on apixaban for 3-6 months, then can consider possibly decreasing to 2.5 mg twice daily for anticoagulation for atrial fibrillation since patient is over 79. Atrial fibrillation, acute, present on admission, active. - Monitored on telemetry - Metoprolol as above - Eliquis for anticoagulation Non-sustained ventricular tachycardia, recurrent -7 beats previously and 13 beats during second episode. Pt asymptomatic. On metoprolol. -Cardiology recommended that if his ventricular function does not significantly improve over the next couple of months with aggressive medical therapy, then he would be a candidate to consider for an implantable cardioverter defibrillator ( ICD). Acute kidney injury; present on admission, improved -Most likely cardiorenal -Renal ultrasound as above. -Additional diuretics for CHF/HTN - Recommend rechecking BMP in 1 week Insomnia, present on admission. - Possibly secondary to chronic anxiety - He has had insomnia during this hospitalization. His daughter reported concern about possible anxiety. - Melatonin and hydroxyzine did not provider relief. Ambien caused pt to be disoriented. - Recommend possible discussion with PCP about long-term medication for possibly chronic anxiety Elevated troponin; present on admission -Likely due to acute kidney injury in context of PE and cardiomyopathy as troponin was only 0.078 -Cardiology consulted. Their time and recommendations were appreciated. -Cardiology recommended for his follow up blanket winder operator to determine if it would be reasonable to proceed with an ischemic evaluation but do not believe that is urgent at this point in time. Hyperglycemia; present admission -HgbA1c 5.6% I called the [facility] in [place], [place] to phone in his prescriptions upon discharge. I also called his primary care provider, Dr. Bowers, in [place], [place] on 12/26/2016 and left a detailed message with her nurse that the patient was being discharged from hospital. Exam Vital Signs (Last) Date Time Temp Pulse Resp B/P Pulse Ox O2 Delivery O2 Flow Rate FiO2 12/26/16 08:00 84 12/26/16 07:58 36.3 18 137/89 98 Room Air 12/21/16 03:00 2.00 Exam Gen.: Patient awake alert in no acute distress HEENT: PERRLA, membranes pink, EOMI, nares patent, moderate JVD, no carotid bruit Lymph: No lymphadenopathy Cardio: Irregularly irregular rhythm with no murmurs, rubs, or gallops Respiratory: Clear to auscultation bilaterally in the anterior and lateral montanez. Abdomen: Positive bowel sounds; nontender, nondistended, soft Extremities: Moderate pitting edema noted bilaterally on lower extremities up to the mid anterior lower leg, pedal pulses is difficult to palpate, radial pulses intact; strength is 4/5 Psych: Appropriate mood and affect Neuro: CN II through XII intact, grossly intact throughout Skin: Numerous SK, no additional rashes Test 12/19/16 09:40 12/19/16 15:36 12/19/16 16:28 12/19/16 19:15 D-Dimer 1.35mg/L FEU (<0.50) Pro-B-Type Natriuretic Peptide 70171dw/mL (0-486) Urine Color Yellow (YELLOW) Urine Appearance Clear (CLEAR,HAZY) Urine pH 5.5 (5.0-8.0) Urine Specific [place] 1.020 (1.003-1.035) Urine Protein 30mg/dL (NEG,TRACE) Urine Glucose (UA) Negativemg/dL (NEGATIVE) Urine Ketones Negativemg/dL (NEGATIVE) Urine Occult Blood Small (NEGATIVE) Urine Nitrite Negative (NEGATIVE) Urine Bilirubin Negative (NEGATIVE) Urine Urobilinogen 1.0mg/dL (NORMAL) Urine Leukocyte Esterase Negative (NEGATIVE) Urine RBC 0-2/hpf (0-2) Urine WBC 0-5/hpf (0-5) Urine Epithelial Cells Few/hpf (NONE-MOD) Urine Crystals None seen (NONE SEEN) Urine Bacteria None/hpf (NONE-FEW) Urine Hyaline Casts None/lpf (NONE) Urine Granular Casts None seen (NONE SEEN) Urine Waxy Casts None seen (NONE SEEN) Urine Red Blood Cell Casts None seen (NONE SEEN) Urine White Blood Cell Casts None seen (NONE SEEN) Urine Mucus None seen (None Seen) Urine Trichomonas None seen (NONE SEEN) Urine Yeast None (NONE SEEN) Urinalysis Comment None Urine Culture Reflexed Not indicated Hemoglobin A1c 5.6% (4.8-5.6) Total Creatine Kinase 87U/L (21-232) Creatine Kinase MB 3.8ng/mL (0.0-10.4) Creatine Kinase MB % 4.4% (0.0-5.0) Troponin T 0.077ug/L (0.0-0.011) Test 12/20/16 02:58 12/21/16 19:02 12/22/16 18:10 12/26/16 04:55 Triglycerides Level 49mg/dL (0-149) Cholesterol Level 109mg/dL (100-199) LDL Cholesterol, Calculated 56.200mg/dL (0-99) VLDL Cholesterol 9.800mg/dL HDL Cholesterol 43mg/dL (>39) Cholesterol/HDL Ratio 2.53 (0.0-4.4) Activated Partial Thromboplast Time 123.5sec (22.8-33.0) Magnesium Level 2.2mg/dL (1.6-2.6) White Blood Count 8.4th/mm3 (3.8-10.1) Red Blood Count 4.83mil/mm3 (4.40-5.80) Hemoglobin 14.3g/dL (13.8-17.2) Hematocrit 43.8% (41.0-50.0) Mean Corpuscular Volume 90.7fL (81-100) Mean Corpuscular Hemoglobin 29.6pg (27.0-35.0) Mean Corpuscular Hemoglobin Concent 32.6% (32.0-37.0) Red Cell Distribution Width 14.5% (12.3-15.4) Platelet Count 204bil/L (150-400) Neutrophils (%) (Auto) 79.7% (40-74) Lymphocytes (%) (Auto) 12.0% (14-46) Monocytes (%) (Auto) 6.8% (4-12) Eosinophils (%) (Auto) 1.2% (0-5) Basophils (%) (Auto) 0.1% (0-3) Sodium Level 142mEq/L (134-144) Potassium Level 4.3mEq/L (3.5-5.2) Chloride Level 101mEq/L (97-108) Carbon Dioxide Level 27mmol/L (18-29) Blood Urea Nitrogen 45mg/dL (8-27) Creatinine 1.48mg/dL (0.76-1.27) Estimat Glomerular Filtration Rate 48mL/min (>59) Glucose Level 129mg/dL (60-99) Calcium Level 9.2mg/dL (8.5-10.1) Total Bilirubin 0.8mg/dL (0.0-1.2) Aspartate Amino Transf (AST/SGOT) 26U/L (0-50) Alanine Aminotransferase (ALT/SGPT) 20U/L (0-44) Alkaline Phosphatase 94U/L (25-160) Total Protein 6.7g/dL (6.4-8.4) Albumin 4.0g/dL (3.4-5.0) Discharge Medications Discharge Medications Amlodipine (Amlodipine) 5 Mg Tablet 10 MG PO DAILY Prescribed by: OLY ANGUIANO DO Apixaban (Eliquis) 5 Mg Tablet 5 MG PO BID Prescribed by: OLY ANGUIANO DO Apixaban (Eliquis) 5 Mg Tablet 10 MG PO BID Take 10 mg twice per day for 5 more days then take 5 mg twice per day thereafter Prescribed by: OLY ANGUIANO DO Furosemide (Furosemide) 40 Mg Tablet 80 MG PO DAILY Prescribed by: OLY ANGUIANO DO Hydralazine (Hydralazine) 50 Mg Tablet 50 MG PO TID Prescribed by: OLY ANGUIANO DO Isosorbide MN ER (Isosorbide MN ER) 60 Mg Tab.er.24h 60 MG PO DAILY Prescribed by: OLY ANGUIANO DO Lisinopril (Lisinopril) 20 Mg Tablet 20 MG PO DAILY (Reported) Metoprolol Succinate ER (Metoprolol Succinate ER) 50 Mg Tab.er.24h 100 MG PO BID Prescribed by: OLY ANGUIANO DO Triamcinolone Acet (Triamcinolone Acetonide Cream) 1 Applic/0.25 Gm Cr 1 APPLIC TOPICAL BID (Reported) As needed Vardenafil (Levitra) 10 Mg Tablet 10 MG PO PRN for sexual activity (Reported) Followup Plan Discharge Diet: Heart Healthy Discharge Activity: Limited until seen by PCP Patient Instructions For your blood pressure and heart, start taking amlodipine at 10 mg a day, metoprolol succinate 100 mg twice daily, furosemide 80 mg once a day, and hydralazine 50 mg three times per day. We recommend that you do not drive until you have seen your primary care provider to make sure that your blood pressure continues to be well controlled. The metoprolol also helps with controlling your heart rate . Stop lisinopril and hydrochlorothiazide. For your blood thinner for stroke prevention and for the blood clots in your lungs, continue Eliquis 10 mg twice per day for the next 5 days and then 5 mg twice per day thereafter. Follow up with your primary care provider, Dr. Bowers, within 7 days. You should discuss possibly checking your kidney function as well with a basic metabolic panel at that time. You will also need to follow up with a cardiology, heart doctor, as soon as possible. You should discuss possibly getting another ultrasound of your heart ( echocardiogram) to see if it has changed. In the future, you may need to discuss if you are a candidate for an implantable cardioverter-defibrillator to prevent abnormal heart rhythms. Follow-up Provider: OTHER,PHYSICIAN Follow-up with PCP in: 1 week (Dr. Charla Bowers in [place], [place]) Time spent Greater than 60 minutes extensive counseling was done with the patient and his daughters about his diagnosis and the current treatment. Attending Statement The patient was seen and examined together with Dr. Anguiano on 12/26/16 and I have added additional information to the note above. Oly Anguiano DO Dec 26, 2016 10:39 Sheri Beltran DO Dec 26, 2016 17:45
== END 2016-12-26 13:50 | disposition home or self-care (01) | DRG 175 ==
LOC: SED 09:31 → EDBD 09:31 → CCU 12:59 → PCC 13:31
PROVIDERS: ADMIT Internal Medicine; ATTEND Internal Medicine
PROC: 3E040RZ Introduction of Antiarrhythmic into Central Vein, Open Approach (ICD-10-PCS; principal; 2016-12-19)
DX: I26.99 Other pulmonary embolism without acute cor pulmonale (principal); I50.23 Acute on chronic systolic (congestive) heart failure; N17.9 Acute kidney failure, unspecified; I47.2 Ventricular tachycardia; I42.8 Other cardiomyopathies; I27.2 Other secondary pulmonary hypertension; I11.0 Hypertensive heart disease with heart failure; R73.9 Hyperglycemia, unspecified; I48.2 Chronic atrial fibrillation; G47.00 Insomnia, unspecified